=== PATIENT | male | born 1955 | race Caucasian/White ===

== ENCOUNTER → 2022-01-22 10:28 | Outpatient (CLI) | payer OTHER, SELFPAY ==
--- NOTE | ~2022-01-22 | MR_ITS ---
EXAMINATION: MR knee RT wo con DATE: 01/22/2022 11:35 INDICATION: Medial and posterior right knee pain. TECHNIQUE: Magnetic resonance imaging (MRI) of the right knee was performed without intravenous contr ast. Sequences included axial PD-weighted FS FSE, coronal PD-weighted FSE and PD-weighted FS FSE, sag ittal PD-weighted FSE, and sagittal T2-weighted FS FSE. COMPARISON: None. FINDINGS: Medial compartment: Large areas of full-thickness cartilage loss on the weightbearing surface of the femoral condyle and the medial aspect of the tibial plateau, with subjacent marrow edema and subchondral cyst formation. Complex tear of the posterior horn, medial meniscus. Mild osteophytosis. Lateral compartment: Mild diffuse thinning of cartilage. Meniscus intact. Mild osteophytosis. Patellofemoral compartment: Partial-thickness cartilage signal abnormality on the medial facet. Retinacula intact. Ligaments and tendons: ACL appears thinned but is intact. The PCL, MCL, and LCL are intact. Remaining flexor and extensor te ndons are intact. Fluid: Large volume joint fluid. Small Garcia's cyst. Osseous/other: No suspicious focal or diffuse marrow signal. IMPRESSION: 1. Complex tear of the posterior horn, medial meniscus. 2. Large areas of full-thickness cartilage loss on both sides of the joint in the medial compartment, with subjacent marrow edema. 3. Large knee joint effusion. 4. Small Garcia's cyst. Reviewed, dictated and finalized at location K. IMPRESSION: 1. Complex tear of the posterior horn, medial meniscus. 2. Large areas of full-thickness cartilage loss on both sides of the joint in t he medial compartment, with subjacent marrow edema. 3. Large knee joint effusion. 4. Small Garcia's cyst.
== END ==
PROVIDERS: PCP Orthopaedic Surgery; Visit Provider Orthopaedic Surgery
DX: M25.561 Pain in right knee (principal); G89.29 Other chronic pain; S83.231A Complex tear of medial meniscus, current injury, right knee, initial encounter; M25.461 Effusion, right knee; M71.21 Synovial cyst of popliteal space [Baker], right knee; M94.8X6 Other specified disorders of cartilage, lower leg
CPT/HCPCS: 73721

== ENCOUNTER 2024-03-04 07:47 | Outpatient (CLI) | payer MEDICARE, OTHER, SELFPAY ==
--- NOTE | ~2024-03-04 | XR_ITS ---
XR hip RT 2V w AP pelvis Ordering provider: Pramod King MD History: . nO INJURY RIGHT HIP PAIN . Comparison: None. FINDINGS: BONES: No acute fracture or dislocation. HIP JOINT SPACES: Severe osteoarthritic arthritic changes bilaterally more on the right side. SACROILIAC JOINT SPACES/LUMBAR SPINE: The sacroiliac joint spaces are normal. Mild degenerative palacio es of the visualized lower lumbar spine. PUBIC SYMPHYSIS: Normal. SOFT TISSUES: Normal. IMPRESSION: No acute osseous abnormality pelvis and right hip. Bilateral hip severe osteoarthritic changes more on the right side. Reviewed, dictated and finalized at location A. 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
== END 2024-03-04 07:48 | disposition home or self-care (01) ==
PROVIDERS: PCP Orthopaedic Surgery; Visit Provider Orthopaedic Surgery
DX: M25.551 Pain in right hip (principal); M16.11 Unilateral primary osteoarthritis, right hip
CPT/HCPCS: 73502

== ENCOUNTER 2024-03-21 09:43 | Outpatient (CLI) | payer MEDICARE, OTHER, SELFPAY ==
--- NOTE | 2024-03-21 10:03 | ECG_ITS ---
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
[2024-03-21 10:44] LABS: Urine Cotinine NEGATIVE
== END 2024-03-21 09:44 | disposition home or self-care (01) ==
PROVIDERS: PCP Orthopaedic Surgery; Visit Provider Orthopaedic Surgery
DX: M17.11 Unilateral primary osteoarthritis, right knee (principal); I25.10 Atherosclerotic heart disease of native coronary artery without angina pectoris; I45.10 Unspecified right bundle-branch block; Z79.899 Other long term (current) drug therapy
CPT/HCPCS: 80307; 93005

== ENCOUNTER 2024-05-29 07:40 | Outpatient (CLI) | payer MEDICARE, OTHER, SELFPAY ==
--- OUTSIDE RECORDS SUMMARY | 2024-05-29 07:43 | XMS_ITS | Clinical Summary ---
Author Organization [facility] Address [facility] [place] [address] Care Team Providers Care Triage Assistant Name Role Phone Savage Potter MD Primary Care Provider [phone] Allergies No known active allergies Medications atorvastatin (LIPITOR) 40 MG tablet Take 1 tablet (40 mg total) by mouth daily. 2 Active Continuous Glucose Sensor (DEXCOM G7 SENSOR) [facility] 4 Active Olmesartan Medoxomil-HCTZ 20-12.5 MG Tab Take 1 tablet by mouth daily. 3 Active NOVOLOG FLEXPEN 100 UNIT/ML injection (PEN) INJECT APPROXIMATELY 150 UNITS DAILY ON SLIDING SCALE 5 Active LANTUS SOLOSTAR 100 UNIT/ML injection (PEN) INJECT 80 UNITS SUBCUTANEOUSLY DAILY 4 Active B-D ULTRAFINE III SHORT PEN 31G X 8 MM [facility] 4 Active latanoprost (XALATAN) 0.005 % ophthalmic solution Apply 1 drop to eye daily. Active Coenzyme Q10 (COQ10) 100 MG Cap Active Active Problems No known active problems Immunizations Name Administration Dates Next Due MODERNA COVID-19 (12+) MRNA, LNP-S, PF, 100 MCG/ 0.5 ML DOSE 07/31/2020,07/03/2020 Family History Medical History Relation Comments Cancer Father Diabetes Father Cancer Mother Hypertension Mother Diabetes Sister Relation Status Comments Father Mother Sister Social History Tobacco Use Types Packs/Day Years Used Date Smoking Tobacco: Some Days Cigarettes Smokeless Tobacco: Never Tobacco Cessation:Ready to Q uit: Yes; Counseling Given: Yes Alcohol Use Standard Drinks/Week Comments Yes 3.3 (1 standard drink = 0.6 oz p ure alcohol) PHQ-2 Answer Date Recorded Patient Health Questionnaire-2 Score 0 01/03/2024 Sex and Gender Information Value Date Recorded Sex Assigned at Not on file Legal Sex Male 10:38 PM CDT Gender Identity Not on file Sexual Orientation Not on file Last Filed Vital Signs Vital Sign Reading Time Taken Comments Blood Pressure 112/67 01/03/2024 9:16 AM CDT Pulse 81 01/03/2024 9:16 AM CDT Temperature 36.6 C (97.9 F) 01/03/2024 9:16 AM CDT Respiratory Rate - - Oxygen Saturation - - Inhaled Oxygen Concentration - - Weight 109.4 kg (241 lb 3.2 oz) 01/03/2024 9:16 AM CDT Height 182.9 cm (6') 01/03/2024 9:16 AM CDT Body Mass Index 32.71 01/03/2024 9:16 AM CDT Plan of Treatment Health Maintenance Due Date Last Done Comments Colorectal Cancer Screening Colonoscopy (10 Years) 1957 Pneumococcal Vaccine: 65+ Years (1 of 2 - PCV) 1963 Hepatitis C 1975 DTaP, Tdap and Td Vaccines ( 1 - Tdap) 1976 Zoster Vaccines (1 of 2) 2007 Annual Medicare Wellness Visit 2022 COVID-19 Vaccine (4 - 2023-2 5 season) 2023 04/16/2021, 07/31/2020, 07/03/2020 Influenza Adult (#1) 2024 03/02/2016 PHQ-2 (Physician [place]) 04/10/2024 01/03/2024 RSV Immunization or 60+ Years (1 - 1-dose 75+ series) 2032 AAA SCREENING Completed 03/14/2023 Meningococcal B Vaccine Aged Out No l onger eligible based on patient's age to complete this topic Meningococcal Vaccine Aged Out No dakn diandra eligible based on patient's age to complete this topic RSV Immunizations Under 20 Months Aged Out No longer eligible b ased on patient's age to complete this topic Insurance MEDICARE [employer] OPEN [facility]ESS [facility] Care Teams Triage Assistant Relationship Specialty Start Date End Date Savage Potter MD [address] [place] [address] PCP - General 09/13/23
--- OUTSIDE RECORDS SUMMARY | 2024-05-29 07:43 | XMS_ITS | Referral Summary ---
Author Organization [facility] Address [address] [address] Care Team Providers Care Hogshead Stripper Name Role Phone Jesus Garcia MD Primary Care Provider [phone] Source Comments [facility],non-owned Affiliates and Associated Physician Practices is amultiple site organization consisting of ambulatory clinics and hospital sitesin [place], [place], [place] and [place]. This disclosure is being madepursuant to the Care Everywhere program and may not contain all information available regarding this patient. Last updated 17.[facility] [employer] Social History Tobacco Use Types Packs/Day Years Used Date Smoking Tobacco: Never Assessed Sex and Gender Information Value Date Recorded Sex Assigned at Not on file Gender Identity Not on file Sexual Orientation Not on file Plan of Treatment Not on file Care Teams Hogshead Stripper Relationship Specialty Start Date End Date Jesus Garcia MD [address] [place] [address] PCP - General Orthopedic Surgery 09/28/21
--- OUTSIDE RECORDS SUMMARY | 2024-05-29 07:43 | XMS_ITS | Patient Health Summary ---
Author Organization [facility] [employer] Address [address] [place] [address] Care Team Providers Care Breeder Service Technician Name Role Phone Jesus Garcia MD Primary Care Provider [phone] Note from [facility],non-owned Affiliates and Associated Physician Practices is amultiple site organization consisting of ambulatory clinics and hospital sitesin [place], [place], [place] and [place]. This disclosure is being madepursuant to the Care Everywhere program and may not contain all information available regarding this patient. Last updated 17.[facility] [employer] Social History Tobacco Use Types Packs/Day Years Used Date Smoking Tobacco: Never Assessed Sex and Gender Information Value Date Recorded Sex Assigned at Not on file Gender Identity Not on file Sexual Orientation Not on file Procedures * XR KNEE RIGHT 4VW OR MORE(Performed 09/28/2021) Performed for Right knee pain, unspecified chronicity Results * XR KNEE RIGHT 4VW OR MORE (09/28/2021 10:32 AM CDT) Anatomical Region Laterality Modality Lower Extremity Radiographic Valentina ging 09/29/2021 2:02 PM CDT Narrative 09/29/2021 2:13 PM CDT RIGHT KNEE 4 VIEWS AND LEFT KNEE ONE VIEW INDICATION: Pain in right knee. Left knee pain. FINDINGS: Four views of the right knee show mild medial femorotibial joint space narrowing. There is no acute fracture or subluxation. A single frontal view of the left knee shows mild medial femorotibial joint space narrowing. There is no acute fracture or subluxation. Edited by Moon Figueroa on 09/29/2021 2:04 PM *Reading Radiologist: Everardo Huerta on 09/29/2021 at 2:13 PM Procedure Note Everardo Huerta MD - 09/29/2021 RIGHT KNEE 4 VIEWS AND LEFT KNEE ONE VIEW INDICATION: Pain in right knee. Left knee pain. FINDINGS: Four views of the right knee show mild medial femorotibial joint space narrowing. There is no acute fracture or subluxation. A single frontal view of the left knee shows mild medial femorotibial joint space narrowing. There is no acute fracture or subluxation. Edited by Moon Figueroa on 09/29/2021 2:04 PM *Reading Radiologist: Everardo Huerta on 09/29/2021 at 2:13 PM Jesus Garcia MD DIAGNOSTIC IMAGING ORDERABLES Care Teams Breeder Service Technician Relationship Specialty Start Date End Date Jesus Garcia MD [address] [facility] [address] [place] [address] PCP - General Orthopedic Surgery 09/28/21
--- OUTSIDE RECORDS SUMMARY | 2024-05-29 07:43 | XMS_ITS | Encounter Summary ---
Author Organization [facility] Address [facility] [place] [address] Care Team Providers Care Stacker Tender Name Role Phone Anny Holland NP Primary Care Provider [phone] Rogerio Putnam MD Primary Care Provider [phone] Savage Potter MD Primary Care Provider [phone] Encounter Details Date Type Department Care Team (Latest Contact Info) Description 02/13/2018 Abstract [facility] Kristina Chatman MD Social History Tobacco Use Types Packs/Day Years Used Date Smoking Tobacco: Smoker, Current Status Unknown Sex and Gender Information Value Date Recorded Sex Assigned at Not on file Legal Sex Male 10:38 PM CDT Gender Identity Not on file Sexual Orientation Not on file documented as of this encounter Plan of Treatment Not on file documented as of this encounter Visit Diagnoses Not on filedocumented in this encounter Care Teams Stacker Tender Relationship Specialty Start Date End Date Anny Holland NP [address] [place] [address] PCP - General 06/16/15 07/06/22 Rogerio Putnam MD [address] [address] PCP - General 07/07/22 09/12/23 Savage Potter MD [address] [place] [address] PCP - General 09/13/23 documented as of this encounter
--- OUTSIDE RECORDS SUMMARY | 2024-05-29 07:43 | XMS_ITS | Referral Summary ---
Author Organization [facility] [address] Address [address] [place] [address] Care Team Providers Care Collection Systems Consultant Name Role Phone Armen Roberson MD Unavailable [phone] Glen Thompson MD Unavailable [phone] Savage Potter MD Primary Care Provider [phone] Encounters Date Type Department Care Team Description 05/24/2024 10:45 AM [facility] Building [address] [address] Prostate cancer (HCC) from Last 3 Months Allergies No known active allergies Medications latanoprost (XALATAN) 0.005 % ophthalmic solution Administer 1 drop into both eyes nightly Active blood glucose diagnostic strip Check fingersticks once daily. E10.65. 100 each 1 3 Active insulin lispro (HumaLOG, ADMELOG) 100 unit/mL pen for injection 150 Units daily per sliding scale. 45 mL 1 3 Active pen needle, diabetic (BD Ultra-Fine Short Pen Needle) 31 gauge x 5/16 needle USE 4 TIMES A DAY TO INJECTINSULIN 400 each 3 4 Active NovoLOG 100 unit/mL (3 mL) pen for injection INJECT APPROXIMATELY 150 UNITS DAILY ON SLIDING SCALE 135 mL 3 4 Active atorvastatin (LIPITOR) 40 mg tablet TAKE 1 TABLET DAILY 90 tablet 3 4 Active olmesartan-hyd rochlorothiazi de (BENICAR HCT) 20-12.5 mg per tablet TAKE 1 TABLET DAILY 90 tablet 3 4 Active Dexcom G7 Sensor device CHECK BLOOD SUGARS 4 TIMES A DAY (CHANGE AFTER 10 DAYS) 9 each 2 4 Active LANTUS 100 unit/mL (3 mL) pen for injection INJECT 80 UNITS SUBCUTANEOUSLY DAILY 75 mL 3 4 Active Active Problems Problem Noted Date Diagnosed Date Prostate cancer 03/15/2023 Assessment & Plan (01/11/2024 10:27 AM CDT): Per urology. Assessment & Plan (06/30/2023 10:32 AM CDT): S/p total prostatectomy. Per urology. Elevated PSA 12/30/2022 Assessment & Plan (12/30/2022 12:17 PM CDT): Prostate MRI ordered per PCP. Right bundle branch block 10/18/2022 Hyperlipidemia 10/18/2022 Assessment & Plan (06/30/2023 10:32 AM CDT): At goal on current therapy. Assessment & Plan (12/30/2022 12:16 PM CDT): At goal on current therapy. Tobacco abuse 10/18/2022 Hypercholesterolemia 10/18/2022 Assessment & Plan (06/30/2023 10:32 AM CDT): At goal on current therapy. Chronic pain of right knee 06/07/2022 Status post arthroscopy of right knee 06/07/2022 Aftercare following surgery of the musculoskelet al system 06/07/2022 Derangement of posterior hor n of medial meniscus of right knee 02/17/2022 Overview (02/17/2022): Added automatically from request for surgery [id number] Idiopathic osteoarthritis 09/29/2021 Type 1 diabetes mellitus without complication Assessment & Plan (01/11/2024 10:27 AM CDT): A1c mildly elevated. I recommended that he limit snacking at night. Keep insulin doses the same. Eye exams are current. He reports no neuropathy. Assessment & Plan (06/30/2023 10:33 AM CDT): A1c at goal on current therapy. Reviewed outside labs. Type 1 diabetes mellitus with hyperglycemia 10/2021 Assessment & Plan (12/30/2022 12:16 PM CDT): A1c at goal on current therapy. Assessment & Plan (06/21/2022 10:21 AM CDT): A1c at goal on current therapy. Labs UTD. Recommend yearly eye exams. Assessment & Plan (10/16/2021 9:40 AM CDT): A1c above goal today. Take 5 Units of Novolog with coffee in AM. Labs today. Eye exams current. Assessment & Plan (04/16/2021 3:50 PM NEUROLOGICAL SURGEON): A1c at goal on current therapy. Labs UTD. Recommend yearly eye exams. Mixed hyperlipidemia 04/16/2021 Assessment & Plan (01/11/2024 10:26 AM CDT): At goal on current therapy. Assessment & Plan (06/21/2022 10:20 AM CDT): At goal on current therapy. Assessment & Plan (10/16/2021 9:40 AM CDT): At goal on current therapy. Assessment & Plan (04/16/2021 3:49 PM NEUROLOGICAL SURGEON): At goal on current therapy. Hypertension, essential 04/16/2021 Assessment & Plan (01/11/2024 12:54 PM CDT): BP mildly elevated at triage today. Continue current regimen and continue to monitor. Assessment & Plan (12/30/2022 12:16 PM CDT): At goal on current therapy. Assessment & Plan (06/21/2022 10:21 AM CDT): At goal on current therapy. Assessment & Plan (10/16/2021 9:40 AM CDT): At goal on current therapy. Assessment & Plan (04/16/2021 3:49 PM NEUROLOGICAL SURGEON): At goal on current therapy. Immunizations Immunization Administration Dates Next Due Pfizer SARS-CoV-2 Monovalent Vaccination (12+ Yrs) PURPLE 04/16/2021 Social History Tobacco Use Types Packs/Day Years Used Date Smoking Tobacco: Every Day Cigarettes 2 50 Smokeless Tobacco: Never Tobacco Cessation:Ready to Q uit: Not Asked; Counseling Given: Not Answered [facility] [employer] Answer Date Recorded In the past 12 months has [employer], [employer], oil, or water Moz[employer] threatened to shut off services in your home? No 05/11/2023 Social Connection and Isolat ion Panel [NHANES] Answer Date Recorded In a typical week, how many times do you talk on the phone with family, friends, or neighbors? More than three times a week 05/11/2023 How often do you get togethe r with friends or relatives? More than three times a week 05/11/2023 How often do you attend chur ch or mormon services? 1 to 4 times per year 05/11/2023 Do you belong to any clubs o r organizations such as sabianism groups, unions, fraternal or athletic groups, or school groups? No 05/11/2023 How often do you attend meet ings of the clubs or organizations you belong to? Never 05/11/2023 Are you , , di vorced, , never , or living with a partner? 05/11/2023 AUDIT-C Answer Date Recorded Q1: How often do you have a drink containing alc ohol? 2-4 times a month 05/10/2023 Q2: How many drinks containi ng alcohol do you have on a typical day when you are drinking? 3 or 4 05/10/2023 Q3: How often do you have si x or more drinks on one occasion? Monthly 05/10/2023 Overall Financial Resource Strain (CARDIA) Answe r Date Recorded How hard is it for you to pa y for the very basics like food, housing, medical care, and heating? Not hard at all 05/11/2023 Hunger Vital Sign Answer Date Recorded Within the past 12 months, y ou worried that your food would run out before you got the money to buy more. Never true 05/11/19 24 Within the past 12 months, t he food you bought just didn't last and you didn't have money to get more. Never true 05/11/2023 PRAPARE - Transportation Answer Date Re corded In the past 12 months, has l ack of transportation kept you from medical appointments or from getting medications? No 04/2023 In the past 12 months, has l ack of transportation kept you from meetings, work, or from getting things needed for daily living? No 05/11/2023 Housing Stability Vital Sign Answer Rigoberto e Recorded In the last 12 months, was t here a time when you were not able to pay the mortgage or rent on time? No 05/11/2023 In the last 12 months, how many places have you lived? 1 05/11/2023 In the last 12 months, was t here a time when you did not have a steady place to sleep or slept in a mcc (including now)? No 05/11/2023 Personal Safety Answer Date Recorded Have you ever been in or are you currently in a harmful physical or emotional relationship or is someone making you feel afraid or unsafe? Denies 05/10/2023 Sex and Gender Information Value Date Recorded Sex Assigned at Not on file Legal Sex Male 3:17 AM NEUROLOGICAL SURGEON Gender Identity Male 07/30/2021 9:13 AM CDT Sexual Orientation Not on file Last Filed Vital Signs Vital Sign Reading Time Taken Comments Blood Pressure 138/87 01/11/2024 10:01 AM CDT Pulse 85 01/11/2024 10:01 AM CDT Temperature 36.9 C (98.4 F) 05/11/2023 10:27 AM NEUROLOGICAL SURGEON Respiratory Rate 24 05/11/2023 10:27 AM NEUROLOGICAL SURGEON Oxygen Saturation 94% 05/11/2023 10:27 AM NEUROLOGICAL SURGEON Inhaled Oxygen Concentration - - Weight 108.9 kg (240 lb) 02/20/2024 3:07 PM NEUROLOGICAL SURGEON Height 182.9 cm (6') 02/20/2024 3:07 PM NEUROLOGICAL SURGEON Body Mass Index 32.55 02/20/2024 3:07 PM NEUROLOGICAL SURGEON Plan of Treatment Not on file Goals Goal Patient Goal Type Associated Problems Recent Progress Patient-Stated? Author CCM Chronic Pain Care Plan Chronic Care Management Worsening( 10:16 AM CDT) No Karissa Smith, RN Note: Problem: Chronic Pain Goals: 1. Minimize further functional decline 2. Maximize quality of life 3. Control pain Strategies: - Activity/exercise program recommendation - Conservative stepwise pain medicine strategy with multi-disciplinary approach - Recommend healthy lifestyle strategies and compensatory methods as needed Medical Devices Implanted Type Area Doping Supervisor Device Identifier Shelf Expiration Date Model / Serial / Lot Dental Implant Mouth Procedures Procedure Name Priority Date/Time Associated Diagnosis Comments PSA DIAGNOSTIC Routine 05/24/2024 11:03 AM NEUROLOGICAL SURGEON Prostate cancer (HCC) POCT HEMOGLOBIN A1C Routine 01/11/2024 12:55 PM CDT Type 1 diabetes mellitus without complication (HCC) CT LUNG CANCER SCREENING Schedule Routine, Read Routine (OP Routine) 07/31/2023 12:37 PM CDT Nicotine dependence, cigarettes, uncomplicated EGFR Routine 05/11/2023 4:43 AM NEUROLOGICAL SURGEON POCT LIPID PANEL Routine 06/21/2022 10:3 6 AM CDT Mixed hyperlipidemia ALBUMIN CREATININE RATIO, URINE Routine 10/15/2021 11:15 AM CDT Type 1 diabetes mellitus with hyperglycemia (HCC) TSH Routine 10/15/2021 11:15 AM CDT Type 1 diabetes mellitus with hyperglycemia (HCC) from Last 3 Months or Most Recently Relevant to Health Maintenance Results * PSA diagnostic (05/24/2024 11:03 AM NEUROLOGICAL SURGEON) PSA-Total <0.10 <=5.40 ng/mL Comment: Interpretive Data AGE SEX REFERENCE INTERVAL 0 minutes-150 years Female None 0 minutes-49 years Male None 50-59 years Male 0-3.90 60-69 years Male 0-5.40 70-79 years Male 0-6.20 80-150 years Male 0-6.20 The Ana Paula PSA Total assay procedure was used. Results from different manufacturers or methods may not be comparable. Serial testing should be performed using the same method. Current interpretive data last revised 21. Testing performed by: [facility], [address] [place] [address]., [id number] Blood 05/24/2024 11:0 3 AM NEUROLOGICAL SURGEON 05/24/2024 12:44 PM NEUROLOGICAL SURGEON us Hardik Solano MD LAB BLOOD ORDERABLES Final Resul t [facility] [id number] [facility] Department [place] [address] * POCT hemoglobin A1c (01/11/2024 12:55 PM CDT) Hemoglobin A1C, POC 7.4 4.0 - 5.6 % Capillary blood 01/11/2024 1 2:55 PM CDT Glen Thompson MD POINT OF CARE TEST MARIBEL GRAY Final Result * CT Lung Cancer Screening (07/31/2023 12:37 PM CDT) Anatomical Region Laterality Modality Chest N/A Computed Tomogra phy 08/01/2023 6:41 AM CDT Narrative 08/01/2023 6:49 AM CDT EXAM DESCRIPTION: CT LUNG CANCER SCREENING REASON FOR STUDY: Screening CT of the chest in a current smoker with a 104 pack year smoking history. Additional history: Prostate carcinoma TECHNIQUE: Low dose CT scan of the chest was performed without intravenous contrast using helical scanning technique. The exam extends from the lung apices through the lung bases. Automatic exposure control was used as a dose optimization technique. NOTE: This study was performed for the specific purposes of lung cancer screening and is not an alternative to diagnostic chest CT. RADIATION DOSE: CT dose index volume (CTDIvol) = 2.86 mGy COMPARISON: PET-CT dated 03/14/2023. FINDINGS: SMOKING RELATED LUNG DISEASE: Mild emphysema, upper lobe predominant. Minimal pleuroparenchymal scarring within the apices. Central bronchial wall thickening as can be seen in the setting of chronic bronchitis in a current smoker. Tiny centrilobular ground-glass nodules are noted as can be seen in the setting of respiratory bronchiolitis in a current smoker. LUNG NODULES: Granuloma left upper lobe. 3 mm ground-glass nodule medial left apex, image 46 of series 2. There are scattered tiny nodules within both lungs. For instance a 2 mm nodule in the right middle lobe on image number 224 no suspicious nodule within either lung. CORONARY ARTERY CALCIFICATION: Present OTHER: No pneumonic consolidation. No effusion or pneumothorax. Central airways are widely patent. The visualized thyroid gland is unremarkable. There is no mediastinal or hilar lymphadenopathy. Scattered subcentimeter nodes are similar to the prior PET-CT. The esophagus is unremarkable. The heart is normal in size, without a pericardial effusion. The thoracic aorta is normal in caliber. Mild atherosclerotic vascular calcifications. Main pulmonary trunk normal in caliber. No axillary lymphadenopathy. The chest wall is unremarkable. Visualized upper abdomen reveals adrenal mass. There is cervical and thoracic spondylosis, with multilevel endplate degenerative change. There is no acute osseous abnormality. IMPRESSION: Mild emphysema, upper lobe predominant. Bronchial wall thickening as can be seen in the setting of chronic bronchitis. Tiny centrilobular ground-glass nodules as can be seen in the setting of respiratory bronchiolitis in a current smoker. Scattered tiny bilateral pulmonary nodules. No suspicious nodularity. Coronary artery calcifications. Additional findings as above. Lung-RADS category 2: Benign appearance or behavior. Recommendation: Low dose Screening CT of chest in 12 months. THIS IS AN ELECTRONICALLY VERIFIED FINAL REPORT 08/01/2023 6:49 AM - Electronically signed by Roxanne Chavarria M.D. TW: MADHAVI Report ID: [id number] Reading Location: [id number] Procedure Note Roxanne Chavarria MD - 08/01/2023 EXAM DESCRIPTION: CT LUNG CANCER SCREENING REASON FOR STUDY: Screening CT of the chest in a current smoker with a104 pack year smoking history. Additional history: Prostate carcinoma TECHNIQUE: Low dose CT scan of the chest was performed without intravenous contrast using helical scanning technique. The exam extends from the lung apices through the lung bases. Automatic exposure control was used as adose optimization technique. NOTE: This study was performed for the specific purposes of lung cancer screening and is not an alternative to diagnostic chest CT. RADIATION DOSE: CT dose index volume (CTDIvol) = 2.86 mGy COMPARISON: PET-CT dated 03/14/2023. FINDINGS: SMOKING RELATED LUNG DISEASE: Mild emphysema, upper lobe predominant. Minimal pleuroparenchymal scarring within the apices.Central bronchial wall thickening as can be seen in the setting of chronicbronchitis in a current smoker. Tiny centrilobular ground-glass nodules are noted ascan be seen in the setting of respiratory bronchiolitis in a current smoker. LUNG NODULES: Granuloma left upper lobe. 3 mm ground-glass nodule medial left apex, image 46 of series 2. There are scattered tiny nodules within both lungs. For instance a 2 mm nodule in the right middle lobe on image number 224 no suspicious nodule within either lung. CORONARY ARTERY CALCIFICATION: Present OTHER: No pneumonic consolidation. No effusion or pneumothorax.Central airways are widely patent. The visualized thyroid gland is unremarkable. There is no mediastinal or hilar lymphadenopathy. Scattered subcentimeter nodes are similar to the prior PET-CT. The esophagus is unremarkable.The heart is normal in size, without a pericardial effusion. The thoracicaorta is normal in caliber. Mild atherosclerotic vascular calcifications. Main pulmonary trunk normal in caliber. No axillary lymphadenopathy. Thechest wall is unremarkable. Visualized upper abdomen reveals adrenal mass.There is cervical and thoracic spondylosis, with multilevel endplatedegenerative change. There is no acute osseous abnormality. IMPRESSION: Mild emphysema, upper lobe predominant. Bronchial wall thickening as can be seen in the setting of chronic bronchitis. Tiny centrilobular ground-glass nodules as can be seen in the setting of respiratory bronchiolitis in a current smoker. Scattered tiny bilateral pulmonary nodules. No suspicious nodularity. Coronary artery calcifications. Additional findings as above. Lung-RADS category 2: Benign appearance or behavior. Recommendation: Low dose Screening CT of chest in 12 months. THIS IS AN ELECTRONICALLY VERIFIED FINAL REPORT 08/01/2023 6:49 AM - Electronically signed by Roxanne Chavarria M.D. TW: MADHAVI Report ID: [id number] Reading Location: [id number] us Savage Potter MD IMG CT PROCEDURES Final R esult * eGFR (05/11/2023 4:43 AM NEUROLOGICAL SURGEON) eGFR 47 mL/min/1. 73 m2 [facility] Comment: Interpretive Data Reference Interval Normal >/= 90 mL/min/1.73m2 Mildly decreased* 60 - 89 mL/min/1.73m2 Mildly to moderately decreased 45 - 59 mL/min/1.73m2 Moderately to severely decreased 30 - 44 mL/min/1.73m2 Severely decreased 15 - 29 mL/min/1.73m2 Kidney Failure < 15 mL/min/1.73m2 *Relative to young adult level Estimated glomerular filtration rate is determined by the 2020 CKD-EPI equation recommended by the National Kidney Foundation (A Unifying Approach to GFR Estimation: Recommendations of the NKF-ASK Task Force on Reassessing the Inclusion of Race in Diagnosing Kidney Disease, JASN 2020). The CKD-EPI equation should not be used for patients with unstable renal function and has not been validated in children and those over 70. Current interpretive data was last reviewed 2021. Blood 05/11/2023 4:43 AM NEUROLOGICAL SURGEON 05/11/2023 5:02 AM NEUROLOGICAL SURGEON us Hardik Solano MD LAB BLOOD ORDERABLES Final Resul t [facility] [address] [facility] Department of Laboratories [place], [place] [id number] * POCT lipid panel (06/21/2022 10:36 AM CDT) Cholesterol, POC <100 mg/dL HDL, POC 28 mg/dL Triglycerides, POC 72 mg/dL LDL Cholesterol POC n/a mg/dL Chol/HDL Ratio, POC n/a Non-HDL Cholesterol, POC n/a mg/dL Cholesterol Total, POC <100 mg/dL Capillary blood 06/21/2022 1 0:36 AM CDT Glen Thompson MD POINT OF CARE TEST MARIBEL GRAY Final Result * Albumin Creatinine Ratio, Urine (10/15/2021 11:15 AM CDT) Creatinine ur 70.2 Not Estab. mg/dL [facility] - 01 Microalbumin, ur 5.8 Not Estab. ug/mL [facility] - 01 Microalbumin/cre at ratio 8 0 - 29 mg/g creat [facility] - 01 Comment: Normal: 0 - 29 Moderately increased: 30 - 300 Severely increased: >300 Urine 10/15/2021 11:1 5 AM CDT 10/15/2021 Narrative [facility] - 10/16/2021 9:10 AM CDT Performed at: [address] [place] [id number] Canine Service Teacher: Surinder Hernandez PhD, Phone: [phone] Glen Thompson MD LAB URINE ORDERABLES Fi nal Result Performing Organization Address [facility] de Phone Number [facility] - * TSH (10/15/2021 11:15 AM CDT) Pathologist [facility] TSH 2.130 0.450 - 4.500 uIU/mL [facility] - 01 Blood specimen (specimen) 10/15/2021 11:15 AM CDT 10/15/2021 Narrative [facility] - 10/16/2021 9:10 AM CDT Performed at: [address] [place] [id number] Canine Service Teacher: Surinder Hernandez PhD, Phone: [phone] Glen Thompson MD LAB BLOOD ORDERABLES Fi nal Result Performing Organization Address [facility] de Phone Number [facility] - from Last 3 Months or Most Recently Relevant to Health Maintenance Insurance [facility] [id number] MEDICARE [facility] [id number] MEDICARE [facility] [id number] MEDICARE [facility] [id number] MEDICARE Advance Directives For more information, please contact: [phone] * Full Code (Latest Code Status on File) Date Activated Date Inactivated Comments 05/10/2023 3:47 PM 05/11/2023 4:29 PM Care Teams Collection Systems Consultant Relationship Specialty Start Date End Date Savage Potter MD [address] [facility] [address] [place] [address] PCP - General Family Medicine 06/23/23 Armen Roberson MD [address] [address] Consulting Physician Orthopedic Surgery 04/19/22 Glen Thompson MD [address] [facility] [address] [place] [address] Consulting Physician Endocrinology Diabetes & Metabolism 05/02/23
--- OUTSIDE RECORDS SUMMARY | 2024-05-29 07:43 | XMS_ITS | Clinical Summary ---
Author Organization [facility] Call [place] Address [address] [place] [address] Care Team Providers Care Racing Secretary Name Role Phone Jesus Garcia MD Primary Care Provider [phone] Source Comments [facility],non-owned Affiliates and Associated Physician Practices is amultiple site organization consisting of ambulatory clinics and hospital sitesin [place], [place], [place] and [place]. This disclosure is being madepursuant to the Care Everywhere program and may not contain all information available regarding this patient. Last updated 17.[facility] Call [place] Social History Tobacco Use Types Packs/Day Years Used Date Smoking Tobacco: Never Assessed Sex and Gender Information Value Date Recorded Sex Assigned at Not on file Gender Identity Not on file Sexual Orientation Not on file Plan of Treatment Health Maintenance Due Date Last Done Comments COLOGUARD (AGES 45-75) - COL ON CA SCREENING 1957 COLON MONITORING 1957 COLONOSCOPY - COLON CA SCREENING 1957 CT COLONOGRAPHY - COLON CA SCREENING 1957 Colorectal Cancer Screening 1957 FIT - COLON CA SCREENING 1957 FLEX SIG - COLON CA SCREENING 1957 LIPID TESTING 1957 HEPATITIS C SCREENING 03/23/1975 DTAP/TDAP/TD VACCINES (1 - Tdap) 1976 PNEUMOCOCCAL VACCINE 50+ (1 of 1 - PCV) 2007 ZOSTER VACCINE (1 of 2) 2007 COVID-19 VACCINE ( - 2023-2 5 season) 2023 04/16/2021, 07/31/2020, 07/03/2020 INFLUENZA VACCINE (#1) 2023 DEPRESSION SCREENING 04/10/2024 Respiratory Syncytial Virus (RSV) Vaccine Pt: or over 60 yrs (1 - 1-dose 75+ series) 2032 HEPATITIS B VACCINE Aged Out No longe r eligible based on patient's age to complete this topic HIB VACCINE Aged Out No longer eligi ble based on patient's age to complete this topic HPV VACCINE Aged Out No longer eligi ble based on patient's age to complete this topic MENINGOCOCCAL (Group B) VACCINE Aged Out No longer eligible b ased on patient's age to complete this topic MENINGOCOCCAL VACCINE Aged Out No dank diandra eligible based on patient's age to complete this topic Care Teams Racing Secretary Relationship Specialty Start Date End Date Jesus Garcia MD [address] [place] [address] PCP - General Orthopedic Surgery 09/28/21
--- OUTSIDE RECORDS SUMMARY | 2024-05-29 07:43 | XMS_ITS ---
Author Organization [facility] [address] Address [address] [place] [address] Care Team Providers Care Spray Mixer Name Role Phone Armen Roberson MD Unavailable [phone] Glen Thompson MD Unavailable [phone] Savage Potter MD Primary Care Provider [phone] Active Problems Problem Noted Date Diagnosed Date [...] (02/17/2022): Added automatically from request for surgery [id number] Idiopathic osteoarthritis 09/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 Assessment & Plan (04/16/2021 3:50 PM PATHOLOGY LABORATORY DIRECTOR): A1c at goal on current therapy. Labs UTD. Recommend yearly eye exams. Mixed hyperlipidemia 04/16/2021 Assessment & Plan (01/11/2024 10:26 AM CDT): At goal on current therapy. Assessment & Plan (06/21/2022 10:20 AM CDT): At goal on current therapy. Assessment & Plan (10/16/2021 9:40 AM CDT): At goal on current therapy. Assessment & Plan (04/16/2021 3:49 PM PATHOLOGY LABORATORY DIRECTOR): At goal on current therapy. Hypertension, essential [...] therapy. Assessment & Plan (04/16/2021 3:49 PM PATHOLOGY LABORATORY DIRECTOR): At goal on current therapy. Current Treatment and Therapy Plans No current plan information found. Past Treatment and Therapy Plans No past plan information found. Lifetime Dose Tracking * Chemical Lifetime Dose Automatic Entry Manual Entr y Fluoro Time 0.642 minutes 0.642 minutes 0 minutes Air kerma at the reference point (Ka,r) 20.32 mGy 2 0.32 mGy 0 mGy DLP 119 mGycm 119 mGycm 0 mGycm CTDIvol 2.86 mGy 2.86 mGy 0 mGy
--- OUTSIDE RECORDS SUMMARY | 2024-05-29 07:43 | XMS_ITS | Clinical Summary ---
Author Organization [facility] [address] Address [address] [place] [address] Care Team Providers Care Slag Skimmer Name Role Phone Armen Roberson MD Unavailable [phone] Glen Thompson MD Unavailable [phone] Savage Potter MD Primary Care Provider [phone] Allergies No known active allergies Medications latanoprost [...] (02/17/2022): Added automatically from request for surgery [id number] Idiopathic osteoarthritis 09/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 Assessment & Plan (04/16/2021 3:50 PM DIVERSIONAL THERAPIST'S ASSISTANT): A1c at goal on current therapy. Labs UTD. Recommend yearly eye exams. Mixed hyperlipidemia 04/16/2021 Assessment & Plan (01/11/2024 10:26 AM CDT): At goal on current therapy. Assessment & Plan (06/21/2022 10:20 AM CDT): At goal on current therapy. Assessment & Plan (10/16/2021 9:40 AM CDT): At goal on current therapy. Assessment & Plan (04/16/2021 3:49 PM DIVERSIONAL THERAPIST'S ASSISTANT): At goal on current therapy. Hypertension, essential [...] therapy. Assessment & Plan (04/16/2021 3:49 PM DIVERSIONAL THERAPIST'S ASSISTANT): At goal on current therapy. Encounters Date Type Department Care Team Description 05/24/2024 10:45 AM DIVERSIONAL THERAPIST'S ASSISTANT Lab [facility] Office Building [address] [place] [id number] Prostate cancer (HCC) from Last 3 Months Immunizations Immunization Administration Dates Next Due Pfizer SARS-CoV-2 Monovalent Vaccination (12+ Yrs) PURPLE 04/16/2021 Surgical History Surgery Date Site/Laterality Comments TRIGGER FINGER RELEASE Bilateral x4 COLONOSCOPY multiple MENISCUS SURGERY 04/10/2022 - 05/10/2022 Right TONSILLECTOMY as a child PROSTATE BIOPSY LASIK Bilateral Medical History Medical History Date Comments Diabetes mellitus type I (HCC) Glaucoma Hypertension Chronic pain disorder right leg, knee hip Prostate cancer (HCC) Hyperlipidemia Dental root implant present uppe r Uses self-applied continuous glucose monitoring device dexcom Family History Medical History Relation Name Comments Diabetes Brother Cancer Father Diabetes Father Cancer Maternal Grandmother Cancer Mother Cancer Sister Diabetes Sister Relation Name Status Comments Brother Father Maternal Grandmother Mother Sister Social History Tobacco Use Types Packs/Day Years Used Date Smoking Tobacco: Every Day Cigarettes 2 50 Smokeless Tobacco: Never Tobacco Cessation:Ready to Q uit: Not Asked; Counseling Given: Not Answered [facility] Utilities Answer Date Recorded In the past 12 months has [employer], gas, oil, or water [employer] threatened to shut off services in your [...] often do you attend chur ch or cheondoism services? 1 to 4 times per year 05/11/2023 Do you belong to any clubs o r organizations such as scientologist groups, unions, fraternal or athletic groups, or [...] place to sleep or slept in a long term (including now)? No 05/11/2023 Personal Safety Answer Date Recorded Have you ever been in or are you currently in a harmful physical or emotional relationship or is someone making you feel afraid or unsafe? Denies 05/10/2023 Sex and Gender Information Value Date Recorded Sex Assigned at Not on file Legal Sex Male 3:17 AM DIVERSIONAL THERAPIST'S ASSISTANT Gender Identity Male 07/30/2021 9:13 AM CDT Sexual Orientation Not on file Obstetrics History Last Filed Vital Signs Vital Sign Reading Time Taken Comments Blood Pressure 138/87 01/11/2024 10:01 AM CDT Pulse 85 01/11/2024 10:01 AM CDT Temperature 36.9 C (98.4 F) 05/11/2023 10:27 AM DIVERSIONAL THERAPIST'S ASSISTANT Respiratory Rate 24 05/11/2023 10:27 AM DIVERSIONAL THERAPIST'S ASSISTANT Oxygen Saturation 94% 05/11/2023 10:27 AM DIVERSIONAL THERAPIST'S ASSISTANT Inhaled Oxygen Concentration - - Weight 108.9 kg (240 lb) 02/20/2024 3:07 PM DIVERSIONAL THERAPIST'S ASSISTANT Height 182.9 cm (6') 02/20/2024 3:07 PM DIVERSIONAL THERAPIST'S ASSISTANT Body Mass Index 32.55 02/20/2024 3:07 PM DIVERSIONAL THERAPIST'S ASSISTANT Plan of Treatment Health Maintenance Due Date Last Done Comments Colon Cancer Screening-Colonoscopy 1957 Depression Screening 1957 Foot Exam 1957 Hepatitis C Screening 1957 Dilated Eye Exam 1967 DTaP/Tdap/Td Vaccine (1 - Tdap) 1968 Pneumococcal vaccine 65+ (1 of 2 - PCV) 1976 Zoster Vaccine (1 of 2) 2007 Abdominal Aortic Aneurysm (A AA) Screen 2022 Well Visit 65+ 2022 Albumin Creatinine Ratio, Urine 10/15/2022 TSH Level 10/15/2022 10/15/2021, 07/28/2020 Lipid Panel 06/22/2023 06/21/2022, 07/0 11/2021, 04/16/2021, Additional history exists Covid-19 Vaccine ( - 2023-2 5 season) 2023 04/16/2021, 07/31/2020, 07/03/2020 Influenza Vaccine (#1) 2023 02/15/2021, 2015 Fall Risk Assessment 05/10/2024 05/10/2023 eGFR 05/11/2024 05/11/2023, 04/11, 03/31/2023, Additional history exists Hemoglobin A1C 07/11/2024 01/11/2024, 04/11, 12/30/2022, Additional history exists Lung Cancer Screening 07/31/2024 07/31/2023 Prostate Cancer Screening-PSA 05/24/2026, 02/14/2024, 10/19/2023, Additional history exists Hepatitis B Screening Completed 03/19/1993 , 08/19/1992, 07/22/1992 Goals Goal Patient Goal Type Associated Problems Recent Progress Patient-Stated? Author CCM Chronic Pain Care Plan Chronic Care Management Worsening( 10:16 AM CDT) Karissa Dickens RN Note: Problem: Chronic Pain Goals: 1. Minimize further functional decline 2. Maximize quality of life 3. Control pain Strategies: - Activity/exercise program recommendation - Conservative stepwise pain medicine strategy with multi-disciplinary approach - Recommend healthy lifestyle strategies and compensatory methods as needed Medical Devices Implanted Type Area Hris Manager Device Identifier Shelf Expiration Date Model / Serial / Lot Dental Implant Mouth Procedures Procedure Name Priority Date/Time Associated Diagnosis Comments PSA DIAGNOSTIC Routine 05/24/2024 11:03 AM DIVERSIONAL THERAPIST'S ASSISTANT Prostate cancer (HCC) POCT HEMOGLOBIN A1C Routine 01/11/2024 12:55 PM CDT Type 1 diabetes mellitus without complication (HCC) CT LUNG CANCER SCREENING Schedule Routine, Read Routine (OP Routine) 07/31/2023 12:37 PM CDT Nicotine dependence, cigarettes, uncomplicated EGFR Routine 05/11/2023 4:43 AM DIVERSIONAL THERAPIST'S ASSISTANT POCT LIPID PANEL Routine 06/21/2022 10:3 6 AM CDT Mixed hyperlipidemia ALBUMIN CREATININE RATIO, URINE Routine 10/15/2021 11:15 AM CDT Type 1 diabetes mellitus with hyperglycemia (HCC) TSH Routine 10/15/2021 11:15 AM CDT Type 1 diabetes mellitus with hyperglycemia (HCC) from Last 3 Months or Most Recently Relevant to Health Maintenance Results * PSA diagnostic (05/24/2024 11:03 AM DIVERSIONAL THERAPIST'S ASSISTANT) PSA-Total <0.10 <=5.40 ng/mL Comment: Interpretive Data [...] data last revised 21. Testing performed by: [facility], [address] [place] [address]., [id number] Blood 05/24/2024 11:0 3 AM DIVERSIONAL THERAPIST'S ASSISTANT 05/24/2024 12:44 PM DIVERSIONAL THERAPIST'S ASSISTANT Hardik Solano MD LAB BLOOD ORDERABLES Final Resul t [facility] [address] [facility] Department [place] [address] * POCT hemoglobin A1c (01/11/2024 12:55 PM CDT) Hemoglobin A1C, POC 7.4 4.0 - 5.6 % Capillary blood 01/11/2024 1 2:55 PM CDT Glen Thompson MD POINT OF CARE TEST [place] ISAAC Final Result * CT Lung Cancer Screening [...] Roxanne Chavarria M.D. TW: MADHAVI Report ID: [id number] Reading Location: [place] [address] Procedure Note Roxanne Chavarria MD - 08/01/2023 [...] Electronically signed by Roxanne Chavarria M.D. TW: TW Report ID: [id number] Reading Location: [id number] us Savage Potter MD IMG CT PROCEDURES Final R esult * eGFR (05/11/2023 4:43 AM DIVERSIONAL THERAPIST'S ASSISTANT) eGFR 47 mL/min/1. 73 m2 [facility] CULVER [...] last reviewed 2021. Blood 05/11/2023 4:43 AM DIVERSIONAL THERAPIST'S ASSISTANT 05/11/2023 5:02 AM DIVERSIONAL THERAPIST'S ASSISTANT Hardki Solano MD LAB BLOOD ORDERABLES Final Resul t [facility] [address] [facility] Department [place] [address] * POCT lipid panel (06/21/2022 10:36 AM [...] - 10/16/2021 9:10 AM CDT Performed at: [facility] [employer] [id number] Waiter/Waitress Second Class: Surinder Hernandez PhD, Phone: [phone] Glen Thompson MD LAB URINE ORDERABLES Fi nal Result Performing Organization Address [facility] de Phone Number [facility] - * TSH (10/15/2021 11:15 AM CDT) TSH 2.130 0.450 - 4.500 uIU/mL [facility] - 01 Blood specimen (specimen) 10/15/2021 11:15 AM CDT 10/15/2021 Narrative [facility] - 10/16/2021 9:10 AM CDT Performed at: [facility] [employer] [address] [id number] Waiter/Waitress Second Class: Surinder Hernandez PhD, Phone: [phone] Glen Thompson MD LAB BLOOD ORDERABLES Fi nal Result Performing Organization Address [facility] Co de Phone Number [facility] - from Last 3 Months or Most Recently Relevant to Health Maintenance Insurance [facility] [id number] MEDICARE [facility] [id number] MEDICARE [facility] [id number] MEDICARE [facility] [id number] MEDICARE Advance Directives For more information, please contact: [phone] * Full Code (Latest Code Status on File) Date Activated Date Inactivated Comments 05/10/2023 3:47 PM 05/11/2023 4:29 PM Care Teams Slag Skimmer Relationship Specialty Start Date End Date Savage Potter MD [address] [address] PCP - General Family Medicine 06/23/23 Armen Roberson MD [address] [address] Consulting Physician Orthopedic Surgery 04/19/22 Glen Thompson MD [address] [address] Consulting Physician Endocrinology Diabetes & Metabolism 05/02/23
--- OUTSIDE RECORDS SUMMARY | 2024-05-29 07:43 | XMS_ITS | Continuity of Care Document ---
Author Organization [facility] Address [address] [place] [address] Phone Care Team Providers Care Yard Clerk Name Role Phone Radha Shantanudorianjaquan Unavailable Unavailable Allergies, Adverse Reactions, Alerts Substance Reaction Status Criticality No Known Allergies Active No Inform ation Medications Medication Instructions Dosage Effective Dates (start - stop) Status Comments ATORVASTATIN CALCIUM (unknown strength) Not Available - Active NOVOLOG (unknown strength) Not Available - Active LATANOPROST (unknown strength) Not Available - Active OLMESARTAN-HYDROCHLOROT HIAZIDE (unknown strength) Not Available - Active Procedures Procedure Date Office/outpatient visit,[facility] 2021 Asp/inject major joint or bursa w/o US g uidance Kenalog 40mg/mL Advance Directives Directive Yes / No Effective Date File Name No Information Encounters Encounter Description Practice Location Reason(s) For Visit Diagnoses Date Provider Providers Copied on Encounter [facility], [address] [place] [address], [id number], [place] tel:[phone] [facility] No Information [place]. [address] [place] [address], [place] [address], [place], [place], [id number] , [place]. tel:[phone] Office/outpa tient visit,[facility], [address], [id number], tel:[phone] [facility] Right Knee (chief complaint) Pain in right kneeUnilateral primary osteoarthritis, right kneePain in right lower legLocalized edema 2 Sisi Gibson. [address] [facility], [address], [place], [place], [id number] , [place]. tel: [phone] Family History Family Member Type Diagnosis Age At Onset Problem Family history of Cancer, un known Problem Family history of hypertensi on Problem Family history of Diabetes monet verena Payers Payer name Insurance type Covered democrat ID Rush parker(s) [employer] CI [id number] Social History Type Description Quantity Date Captured Comments Alcohol Use Details Unknown Caffeine Use Details Unknown Tobacco Use Status Smoking Status No Information Sex Male Chief Complaint And Reason For Visit No Information Reason For Referral Reason For Referral No Information Plan Of Treatment Date Type Action Status Referral Ordered: Venous Doppler Extremity RT leg ordered History Of Present Illness Encounter Date Complaint History Of Prese nt Illness Right Knee Desmond is a pleas ant 66-year-old, 6 foot tall, 250 pounds, right-hand dominant gentleman who presents to the office today for evaluation of his acute, nontraumatic right knee pain. Patient is unable to identify initiating or exacerbating factors. Pain is predominantly located in the popliteal region of the knee and has been present for approximately 1 month. States it is interfering with his weekly golf game. He has a past medical history significant for type 1 diabetes with insulin usage for management, hypertension, and hypercholesterolemia. Indicates usage of Dex com glucose monitor, with recent hemoglobin A1c at 6.7. States he has received cortisone injections into his back with no increase in glucose levels noticeable. 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 He has a 60-dcsx-wity history of smoking, and is a social drinker consuming approximately 2 beers per week. He is currently experiencing night pain, limping, a decrease in range of motion, weakness, giving way, stiffness, and popping. His pain is rated at an 8 out of 10 with a fluctuant constant nature. Pain is worsened with range of motion of the knee, lifting, pushing, standing, sit to stand maneuver, movement, ambulation, ascending and descending stairs. Pain is managed with the use of activity modifications and CBD oil. Denies injury, trauma, or fall within the last 12 months. Denies fever, chills, generalized feelings of illness or malaise at today's office visit. He is ambulating without assistive device at today's office visit. Functional Status Date Functional Assessmen t No Information Instructions Date Instruction Additional Infor renuka Verbal consent for t he procedure was obtained. The patient was seated with the knees bent to 90 degrees of flexion. The right knee was prepped with alcohol and chlorhexidine. The skin was anesthetized with Ethyl Chloride spray and a 22 gauge needle was used to introduce 40 mg of Kenalog and 3 mL of 1% Lidocaine plain into the knee joint. The area of injection was then cleaned and a sterile bandage was placed. The procedure was completed without complication, and was well tolerated by the patient. Patient was discharged in stable condition. Dictation completed with [employer] Practice Edition software, grammatical variances in spelling errors may inadvertently occur. Related to Localized edema Assessments Type Assessment Date No Information Patient Care Teams Name Effective Dates (start - stop) Status Members No Information
--- OUTSIDE RECORDS SUMMARY | 2024-05-29 07:43 | XMS_ITS | Encounter Summary ---
Author Organization [facility] Address [address] [place] [address] Care Team Providers Care Cold Storage Supervisor Name Role Phone Savage Potter MD Primary Care Provider [phone] Encounter Details Date Type Department Care Team (Late st Contact Info) Description 01/03/2024 MyChart Message Enc [facility] [place] [address] [place] [address] Cuate Pope MD [address] [place] [address] Smoking Social History Tobacco Use Types Packs/Day Years Used Date Smoking Tobacco: Some Days Cigarettes Smokeless Tobacco: Never Alcohol Use Standard Drinks/Week Comments Yes 3.3 [...] on filedocumented in this encounter Care Teams Cold Storage Supervisor Relationship Specialty Start Date End Date Savage Potter MD [address] [place] [address] PCP - General 09/13/23 documented as of this encounter
[2024-05-29 09:10] LABS: Basophils Absolute Auto 0.1 K/mm3 (0.0-0.1); Basophils Percent Auto 1.1 % (0.2-1.2); Eosinophils Absolute Auto 0.1 K/mm3 (0-0.3); Eosinophils Percent Auto 1.9 % (0-4.4); Hematocrit 39.5 % (42.0-52.0); Hemoglobin 13.4 g/dL (14.0-18.0); Immature Granulocyte Absolute 0.02 K/mm3 (0.00-0.031); Immature Granulocyte Percent A 0.3 % (0-0.5); Lymphocytes Absolute Auto 1.71 K/mm3 (0.9-3.2); Lymphocytes Percent Auto 26.6 % (18.3-44.2); Mean Corpuscular HGB Conc 33.9 g/dl (32-36); Mean Corpuscular Hemoglobin 29.3 pg (26-34); Mean Corpuscular Volume 86.2 fl (80-100); Monocytes Absolute Auto 0.5 K/mm3 (0.1-0.6); Monocytes Percent Auto 7.8 % (2.6-8.5); Neutrophils Percent Auto 62.3 % (45.5-73.1); Platelet Count Result 182 k/mm3 (150-375); Red Blood Count 4.58 M/mm3 (4.6-6.20); Red Cell Distribution Width 12.7 % (11.5-14.5); White Blood Count 6.4 K/mm3 (4.5-10.0)
[2024-05-29 09:15] LABS: Albumin Level 4.2 g/dL (3.5-5.1)
[2024-05-29 09:18] LABS: Anion Gap 12 mmol/L (4-12); Blood Urea Nitrogen 22 mg/dL (9-20); Calcium 9.1 mg/dL (8.4-10.2); Carbon Dioxide 25 mmol/L (22-30); Chloride 103 mmol/L (98-107); Estimated Glomerular Filt Rate > 60; Glucose 102 mg/dL (65-110); Potassium 4.5 mmol/L (3.4-5.0); Sodium 140 mmol/L (137-145)
[2024-05-29 09:20] LABS: Urine Cotinine NEGATIVE
[2024-05-29 09:29] LABS: Hemoglobin A1C 7.1 % (<5.7)
[2024-05-29 10:16] LABS: MRSA (PCR) NOT DETECTED (NOT DETECTE)
== END 2024-05-29 07:41 | disposition home or self-care (01) ==
PROVIDERS: Anesthesiology; PCP Family Medicine; Visit Provider Orthopaedic Surgery
DX: Z01.812 Encounter for preprocedural laboratory examination (principal); M16.11 Unilateral primary osteoarthritis, right hip; E11.9 Type 2 diabetes mellitus without complications
CPT/HCPCS: 36415; 80048; 80307; 82040; 83036; 85025; 87641

== ENCOUNTER 2024-06-21 16:14 | Inpatient (IN) | payer MEDICARE, OTHER, SELFPAY ==
--- NOTE | 2024-05-29 07:48 | PC.NURSE ---
Report to the Outpatient Waiting Room, entrance under the green pavilion located off [facility], at time __6 AM on date _06/20/24 . Planned Procedure Time: ___7:30 AM .? Time changes happen often and if your time is changed the preop area will call you the afternoon before. - You and your visitor will be asked to self-screen and do not enter if you have any COVID symptoms. Please call surgeon if you need to reschedule. - A mask is optional within the hospital at this time. Patients may have clear liquids (water, carbonated beverages, clear teas, apple juice) until 3 hours prior to surgery ( 4:30 AM)with a maximum of 20 ounces. - No food from midnight until time of surgery and no smoking, or chewing tobacco (or any form of nicotine). No chewing gum, candy or mints. Take only the following medications with a SIP of water on the morning of surgery: ____NONE DO NOT STOP ANY OF YOUR OTHER PRESCRIPTION MEDICATIONS PRIOR TO SURGERY EXCEPT THE FOLLOWING Hold all vitamins and supplements for 3 days per anesthesiologist. LAST DOSE 06/16/24 Medications to discontinue per physician _ Please no make-up, nail pashto, hairspray, perfume, deodorant, or body powder the day of surgery.? No jewelry (including any body piercings) or valuables the day of surgery, leave them at home.? Please take a shower or bath the night before, or the morning of, surgery with an antibacterial soap.? Wear comfortable, loose fitting clothing.? Children are encouraged to wear pajamas. - Jewelry must be removed prior to entering the operating room.? Rings and piercings that are not removed may be cut off. - The hospital will not accept responsibility for valuables.? - Please leave all valuables, including medications, at home the day of surgery. If you are going home after surgery, a licensed superintendent drivers must drive you home.? - NO public transportation without another adult if you receive anesthesia. - We recommend that an adult stay with you for 24 hours following discharge. - We also recommend that you do not drive, make important decision, drink alcoholic beverages, or take any drugs that were not prescribed by your health care provider for at least 24 hours after your discharge time. For Pediatric surgeries, we recommend two adults accompany the child home. Follow any additional instructions given to you from your surgeon. VERBAL AND WRITTEN instructions given to ___PATIENT AND WIFE and asked if any additional questions and then verbalized understanding. Patient advised to call surgeon office or pre surgery nurse liaison [phone] if any additional questions.
[2024-05-29 07:52] VITALS: BMI 35.9
[2024-05-29 08:41] VITALS: BP 141/89; PULSE 74; RESP 18; TEMP 37.1; O2SAT 98
--- NOTE | 2024-06-19 13:03 | P.PNAN_ITS ---
Anes - Initial Pre Proc Eval Procedure: Operation Date: 06/20/24 07:30 Proposed Procedures p Right Total Hip Arthroplasty - Pramod King MD Date/Time: 06/19/24 13:03 Surgeon: Pramod King MD Pre Op Diagnosis: primary oa right hip Patient Data Age: 69 Gender: M Height: 1.83 m Weight: 120.1 kg Last Vital Signs Temp 98.8 F 05/29/24 08:41 Pulse 74 05/29/24 08:41 Resp 18 05/29/24 08:41 BP 141/89 H 05/29/24 08:41 Pulse Ox 98 05/29/24 08:41 O2 Del Method Room Air 05/29/24 08:41 Allergies Allergy/AdvReac Type Severity Reaction Status Date / Time No Known Allergies Allergy Verified 05/29/24 09:24 Home Medications ?Medication ?Instructions ?Recorded ?Confirmed ?Type atorvastatin 40 mg tablet 40 mg PO DAILY 12/27/22 05/29/24 History data transfer cap, glargine,BT 12/27/22 05/29/24 History (Garrison Adin Pen Cap-Basaglar device) insulin pen,reusable,BT,aspart 12/27/22 05/29/24 History [InPen (Novolog or Fiasp) Blue] latanoprost 0.005 % eye drops 1 drp EACH EYE HS 12/27/22 05/29/24 History olmesartan 40 mg tablet 40 mg PO DAILY 12/27/22 05/29/24 History coenzyme Q10 100 mg capsule (Co 100 mg PO DAILY 05/29/24 05/29/24 History Q-10) insulin aspart U-100 100 unit/mL 1 sliding scale dose subcut DAILY 05/29/24 05/29/24 History (3 mL) subcutaneous pen (Novolog FlexPen U-100 Insulin aspart) insulin glargine 100 unit/mL (3 80 unit subcut QPM 05/29/24 05/29/24 History mL) subcutaneous pen (Lantus Solostar U-100 Insulin) olmesartan 20 1 tablet PO DAILY 05/29/24 05/29/24 History mg-hydrochlorothiazide 12.5 mg tablet aspirin 81 mg tablet,delayed 81 mg PO BID 14 days #28 tabs 06/20/24 Rx release oxycodone-acetaminophen 5 mg-325 1 - 2 tablet PO Q4-6H PRN pain 7 06/20/24 Rx mg tablet days #30 tabs Patient hx anesthesia problems: none Family hx anesthesia problems: none Results Review: All pre-operative results and documents have been reviewed as part of the pre- operative evaluation. [facility] Past Medical History Medical History History of stress test (~10/2022) Surgical History Surgical History H/O medial meniscus repair of right knee (~04/2022) Family History Family History Other Arthritis Cancer Social History Social History (Updated 05/29/24 @ 11:01 by JUWAN Farfan) Smoking packs per day: 2 Smoking cigarettes per day: 40.0 Years smoked: 50 Smoking pack-years: 100.00 Smoking status: Former smoker Tobacco type: cigarettes Smoking end date: 01/09/24 Additional smoking assessment comments: JACKLYN ANY FORM OF TOBACCO USE Alcohol intake: current Drinks per week: 4 Alcohol use details: socially Substance use: current Substance use type: does not use Do You Feel Safe in your Home?: Yes Lack of Transportation: No Lack of Food: Never True Current Housing: I Have Housing Concerned About Future Housing: No Difficulty Paying Gas/Electric Bills: No Difficulty Paying for Meds: No Currently Unemployed: No Education: High School Diploma/GED Difficulty w/ Childcare or Family Care: No Living arrangements: with family Spiritual care concerns: No Anes - Eval Final PreProcedure Day of Procedure 06/19/24 13:03 Patient weight: obese Heart: regular rate and rhythm Lungs: clear to auscultation Airway: Mallampati scale class III Neurological: alert and oriented Last oral intake: >/= 8 hours ASA classification: III Emergent: no Anesthetic plan: proceed Anesthesia type and monitoring: general ETT and standard monitoring Results Review: All pre-operative results and documents have been reviewed as part of the pre- operative evaluation. Informed Consent: The patient's anesthetic plan and its attendant risks and benefits were discussed with the patient/family/POA. Questions were solicited and answers provided to the satisfaction of the patient/family/POA.
[2024-06-20] VITALS (14 sets, daily range): BP systolic 123–162; BP diastolic 61–86; PULSE 78–98; RESP 12–18; TEMP 35.5–36.9; O2SAT 93–100; BMI 34.9
--- OUTSIDE RECORDS SUMMARY | 2024-06-20 00:21 | XMS_ITS | Clinical Summary ---
Author Organization [facility] [address] Address [address] [place] [address] Care Team Providers Care Dampener Operator Name Role Phone Armen Roberson MD Unavailable [phone] Glen Thompson MD Unavailable [phone] Savage Potter MD Primary Care Provider [phone] Allergies No known active allergies Medications latanoprost [...] SUBCUTANEOUSLY DAILY 75 mL 3 4 Active blood-glucose sensor (Dexcom G6 Sensor) device Dexcom G6 sensor use for 10 days to monitor blood sugar. 9 each 5 Active Active Problems Problem Noted Date Diagnosed [...] (02/17/2022): Added automatically from request for surgery [id number] Idiopathic osteoarthritis 09/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 Assessment & Plan (04/16/2021 3:50 PM HARNESS BUILDER): A1c at goal on current therapy. Labs UTD. Recommend yearly eye exams. Mixed hyperlipidemia 04/16/2021 Assessment & Plan (01/11/2024 10:26 AM CDT): At goal on current therapy. Assessment & Plan (06/21/2022 10:20 AM CDT): At goal on current therapy. Assessment & Plan (10/16/2021 9:40 AM CDT): At goal on current therapy. Assessment & Plan (04/16/2021 3:49 PM HARNESS BUILDER): At goal on current therapy. Hypertension, essential [...] therapy. Assessment & Plan (04/16/2021 3:49 PM HARNESS BUILDER): At goal on current therapy. Encounters Date Type Department Care Team Description 06/06/2024 [facility] [address] [facility] [address] [place] [address] Glen Thompson MD call from pharmacy 05/30/2024 8:20 AM HARNESS BUILDER Office Visit [facility] Surgery [address] [facility] [address] [place] [id number] Hardik Solano MD Prostate cancer (HCC) (Primary Dx) 05/24/2024 10:45 AM HARNESS BUILDER Lab [facility] Office Building 1 Lab [facility] [place] [address] Prostate cancer (HCC) from Last 3 Months [...] uit: Not Asked; Counseling Given: Not Answered [facility] Utilities Answer Date Recorded In the past 12 months has th e [employer], gas, oil, or water company threatened to shut off services in your [...] often do you attend chur ch or bahai services? 1 to 4 times per year 05/11/2023 Do you belong to any clubs o r organizations such as yazidism groups, unions, fraternal or athletic groups, or [...] place to sleep or slept in a half-way (including now)? No 05/11/2023 Personal Safety Answer Date Recorded Have you ever been in or are you currently in a harmful physical or emotional relationship or is someone making you feel afraid or unsafe? Denies 05/10/2023 Sex and Gender Information Value Date Recorded Sex Assigned at Not on file Legal Sex Male 3:17 AM HARNESS BUILDER Gender Identity Male 07/30/2021 9:13 AM CDT Sexual Orientation Not on file Obstetrics History Last Filed Vital Signs Vital Sign Reading Time Taken Comments Blood Pressure 138/87 01/11/2024 10:01 AM CDT Pulse 85 01/11/2024 10:01 AM CDT Temperature 36.9 C (98.4 F) 05/11/2023 10:27 AM HARNESS BUILDER Respiratory Rate 24 05/11/2023 10:27 AM HARNESS BUILDER Oxygen Saturation 94% 05/11/2023 10:27 AM HARNESS BUILDER Inhaled Oxygen Concentration - - Weight 114.8 kg (253 lb) 05/30/2024 8:10 AM HARNESS BUILDER Height 182.9 cm (6') 05/30/2024 8:10 AM HARNESS BUILDER Body Mass Index 34.31 05/30/2024 8:10 AM HARNESS BUILDER Plan of Treatment Health Maintenance Due Date [...] 11/2021, 04/16/2021, Additional history exists Covid-19 Vaccine (4 - 2023-2 5 season) 2023 [...] Care Management Worsening( 10:16 AM CDT) Karissa Dickens, RN Note: Problem: Chronic Pain Goals: 1. Minimize further functional decline 2. Maximize quality of life 3. Control pain Strategies: - Activity/exercise program recommendation - Conservative stepwise pain medicine strategy with multi-disciplinary approach - Recommend healthy lifestyle strategies and compensatory methods as needed Medical Devices Implanted Type Area Food Writer Device Identifier Shelf Expiration Date Model / Serial / Lot Dental Implant Mouth Procedures Procedure Name Priority Date/Time Associated Diagnosis Comments PSA DIAGNOSTIC Routine 05/24/2024 11:03 AM HARNESS BUILDER Prostate cancer (HCC) POCT HEMOGLOBIN A1C Routine 01/11/2024 12:55 PM CDT Type 1 diabetes mellitus without complication (HCC) CT LUNG CANCER SCREENING Schedule Routine, Read Routine (OP Routine) 07/31/2023 12:37 PM CDT Nicotine dependence, cigarettes, uncomplicated EGFR Routine 05/11/2023 4:43 AM HARNESS BUILDER POCT LIPID PANEL Routine 06/21/2022 10:3 6 AM CDT Mixed hyperlipidemia ALBUMIN CREATININE RATIO, URINE Routine 10/15/2021 11:15 AM CDT Type 1 diabetes mellitus with hyperglycemia (HCC) TSH Routine 10/15/2021 11:15 AM CDT Type 1 diabetes mellitus with hyperglycemia (HCC) from Last 3 Months or Most Recently Relevant to Health Maintenance Results * PSA diagnostic (05/24/2024 11:03 AM HARNESS BUILDER) PSA-Total <0.10 <=5.40 ng/mL Comment: Interpretive Data [...] data last revised 21. Testing performed by: [facility], [address] [place] [address]., [address] Blood 05/24/2024 11:0 3 AM HARNESS BUILDER 05/24/2024 12:44 PM HARNESS BUILDER us Hardik Solano MD LAB BLOOD ORDERABLES Final Resul t [facility] [address] [facility] [place] [address] * POCT hemoglobin A1c (01/11/2024 12:55 PM CDT) Hemoglobin A1C, POC 7.4 4.0 - 5.6 % Capillary blood 01/11/2024 1 2:55 PM CDT us Glen Thompson MD POINT OF CARE TEST [...] Roxanne Chavarria M.D. TW: TW Report ID: [id number] Reading Location: [place] [address] Procedure Note Roxanne Chavarria MD - 08/01/2023 [...] Roxanne Chavarria M.D. TW: TW Report ID: [id number] Reading Location: [place] [address] Savage Potter MD IMG CT PROCEDURES Final R esult * eGFR (05/11/2023 4:43 AM HARNESS BUILDER) eGFR 47 mL/min/1. 73 m2 [facility] [...] last reviewed 2021. Blood 05/11/2023 4:43 AM HARNESS BUILDER 05/11/2023 5:02 AM HARNESS BUILDER Hardik Solano MD LAB BLOOD ORDERABLES Final Resul t [facility] [address] [facility] Department [place] [address] * POCT lipid panel (06/21/2022 10:36 AM CDT) Cholesterol, POC <100 mg/dL HDL, POC 28 mg/dL Triglycerides, POC 72 mg/dL LDL Cholesterol POC n/a mg/dL Chol/HDL Ratio, POC n/a Non-HDL Cholesterol, POC n/a mg/dL Cholesterol Total, POC <100 mg/dL Capillary blood 06/21/2022 1 0:36 AM CDT Glen Thompson MD POINT OF CARE TEST ORDE RABLES Final Result * Albumin Creatinine Ratio, Urine [...] - 10/16/2021 9:10 AM CDT Performed at: 01 - [facility] [address] [id number] Skin Care Consultant: Surinder Hernandez PhD, Phone: [phone] Glen Thompson MD LAB URINE ORDERABLES Fi nal Result [facility] * TSH (10/15/2021 11:15 AM CDT) TSH 2.130 0.450 - 4.500 uIU/mL [facility] - 01 Blood specimen (specimen) 10/15/2021 11:15 AM CDT 10/15/2021 Narrative [facility] - 10/16/2021 9:10 AM CDT Performed at: - [facility] [address] [id number] Skin Care Consultant: Surinder Hernandez PhD, Phone: [phone] Glen Thompson MD LAB BLOOD ORDERABLES Fi nal Result [facility] - 01 from Last 3 Months or Most Recently Relevant to Health Maintenance Insurance [employer] [facility] [id number] MEDICARE Ning [facility] [id number] MEDICARE [facility] [id number] MEDICARE [employer] [facility] [id number] MEDICARE Advance Directives For more information, please contact: [phone] * Full Code (Latest Code Status on File) Date Activated Date Inactivated Comments 05/10/2023 3:47 PM 05/11/2023 4:29 PM Care Teams Dampener Operator Relationship Specialty Start Date End Date Savage [place] MD [address] [facility] [address] [place] [address] PCP - General Family Medicine 06/23/23 Armen Roberson MD [address] [address] Consulting Physician Orthopedic Surgery 04/19/22 Glen Thompson MD [address] [facility] [address] [place] [address] Consulting Physician Endocrinology Diabetes & Metabolism 05/02/23
--- OUTSIDE RECORDS SUMMARY | 2024-06-20 00:21 | XMS_ITS | Clinical Summary ---
Author Organization [facility] Address [facility] [place] [address] Care Team Providers Care Painter Rough Name Role Phone Savage Potter MD Primary Care Provider [phone] Allergies No known active allergies Medications atorvastatin (LIPITOR) 40 MG tablet Take 1 tablet (40 mg total) by mouth daily. 2 Active Continuous Glucose Sensor (DEXCOM G7 SENSOR) [facility] 4 Active Olmesartan Medoxomil-HCTZ 20-12.5 MG Tab Take 1 tablet by mouth daily. 3 Active NOVOLOG FLEXPEN 100 UNIT/ML injection (PEN) INJECT APPROXIMATELY 150 UNITS DAILY ON SLIDING SCALE 5 Active LANTUS SOLOSTAR 100 UNIT/ML injection (PEN) INJECT 80 UNITS SUBCUTANEOUSLY DAILY 4 Active B-D ULTRAFINE III SHORT PEN 31G X 8 MM [facility] 4 Active latanoprost (XALATAN) 0.005 % ophthalmic [...] Influenza Adult (#1) 2024 03/02/2016 PHQ-2 (Physician [place]) 04/10/2024 01/03/2024 RSV Immunization or 60+ Years (1 - 1-dose 75+ series) 2032 AAA SCREENING Completed 03/14/2023 Meningococcal B Vaccine Aged Out No l onger eligible based on patient's age to complete this topic Meningococcal Vaccine Aged Out No dank diandra eligible based on patient's age to complete this topic RSV Immunizations Under 20 Months Aged Out No longer eligible b ased on patient's age to complete this topic Insurance MEDICARE [employer] [facility] Care Teams Painter Rough Relationship Specialty Start Date End Date Savage [place] MD [address] [place] [address] PCP - General 09/13/23
--- OUTSIDE RECORDS SUMMARY | 2024-06-20 00:21 | XMS_ITS | Referral Summary ---
Author Organization [facility] [address] [facility] Address [address] [place] [address] Care Team Providers Care Optical Effects Line Up Person Name Role Phone Armen Roberson MD Unavailable [phone] Glen Thompson MD Unavailable [phone] Savage Potter MD Primary Care Provider [phone] Encounters Date Type Department Care Team Description 06/06/2024 [facility] [address] [facility] [address] [place] [address] Glen Thompson MD call from pharmacy 05/30/2024 8:20 AM OPERATIONS RECRUITER Office Visit [facility] [address] [place] [address] [place] [address] Hardik Solano MD Prostate cancer (HCC) (Primary Dx) 05/24/2024 10:45 AM OPERATIONS RECRUITER Lab [facility] Office Building [address] [place] [address] Prostate cancer (HCC) from Last 3 Months [...] (02/17/2022): Added automatically from request for surgery [id number] Idiopathic osteoarthritis 09/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 Assessment & Plan (04/16/2021 3:50 PM OPERATIONS RECRUITER): A1c at goal on current therapy. Labs UTD. Recommend yearly eye exams. Mixed hyperlipidemia 04/16/2021 Assessment & Plan (01/11/2024 10:26 AM CDT): At goal on current therapy. Assessment & Plan (06/21/2022 10:20 AM CDT): At goal on current therapy. Assessment & Plan (10/16/2021 9:40 AM CDT): At goal on current therapy. Assessment & Plan (04/16/2021 3:49 PM OPERATIONS RECRUITER): At goal on current therapy. Hypertension, essential [...] therapy. Assessment & Plan (04/16/2021 3:49 PM OPERATIONS RECRUITER): At goal on current therapy. Immunizations Immunization Administration Dates Next Due Pfizer SARS-CoV-2 Monovalent Vaccination (12+ Yrs) PURPLE 04/16/2021 Social History Tobacco Use Types Packs/Day Years Used Date Smoking Tobacco: Every Day Cigarettes 2 50 Smokeless Tobacco: Never Tobacco Cessation:Ready to Q uit: Not Asked; Counseling Given: Not Answered [facility] [employer] Answer Date Recorded In the past 12 months has e [employer], gas, oil, or water [employer] threatened to shut off services in your [...] often do you attend chur ch or holiness services? 1 to 4 times per year 05/11/2023 Do you belong to any clubs o r organizations such as jainism groups, unions, fraternal or athletic groups, or [...] place to sleep or slept in a correction (including now)? No 05/11/2023 Personal Safety Answer Date Recorded Have you ever been in or are you currently in a harmful physical or emotional relationship or is someone making you feel afraid or unsafe? Denies 05/10/2023 Sex and Gender Information Value Date Recorded Sex Assigned at Not on file Legal Sex Male 3:17 AM OPERATIONS RECRUITER Gender Identity Male 07/30/2021 9:13 AM CDT Sexual Orientation Not on file Last Filed Vital Signs Vital Sign Reading Time Taken Comments Blood Pressure 138/87 01/11/2024 10:01 AM CDT Pulse 85 01/11/2024 10:01 AM CDT Temperature 36.9 C (98.4 F) 05/11/2023 10:27 AM OPERATIONS RECRUITER Respiratory Rate 24 05/11/2023 10:27 AM OPERATIONS RECRUITER Oxygen Saturation 94% 05/11/2023 10:27 AM OPERATIONS RECRUITER Inhaled Oxygen Concentration - - Weight 114.8 kg (253 lb) 05/30/2024 8:10 AM OPERATIONS RECRUITER Height 182.9 cm (6') 05/30/2024 8:10 AM OPERATIONS RECRUITER Body Mass Index 34.31 05/30/2024 8:10 AM OPERATIONS RECRUITER Plan of Treatment Not on file Goals [...] as needed Medical Devices Implanted Type Area Manager Poker Device Identifier Shelf Expiration Date Model / Serial / Lot Dental Implant Mouth Procedures Procedure Name Priority Date/Time Associated Diagnosis Comments PSA DIAGNOSTIC Routine 05/24/2024 11:03 AM OPERATIONS RECRUITER Prostate cancer (HCC) POCT HEMOGLOBIN A1C Routine 01/11/2024 12:55 PM CDT Type 1 diabetes mellitus without complication (HCC) CT LUNG CANCER SCREENING Schedule Routine, Read Routine (OP Routine) 07/31/2023 12:37 PM CDT Nicotine dependence, cigarettes, uncomplicated EGFR Routine 05/11/2023 4:43 AM OPERATIONS RECRUITER POCT LIPID PANEL Routine 06/21/2022 10:3 6 AM CDT Mixed hyperlipidemia ALBUMIN CREATININE RATIO, URINE Routine 10/15/2021 11:15 AM CDT Type 1 diabetes mellitus with hyperglycemia (HCC) TSH Routine 10/15/2021 11:15 AM CDT Type 1 diabetes mellitus with hyperglycemia (HCC) from Last 3 Months or Most Recently Relevant to Health Maintenance Results * PSA diagnostic (05/24/2024 11:03 AM OPERATIONS RECRUITER) PSA-Total <0.10 <=5.40 ng/mL Comment: Interpretive Data [...] data last revised 21. Testing performed by: [facility], [address] [place] [address]., [address] Blood 05/24/2024 11:0 3 AM OPERATIONS RECRUITER 05/24/2024 12:44 PM OPERATIONS RECRUITER us Hardik Solano MD LAB BLOOD ORDERABLES Final Resul t [facility] [address] [facility] Department [place] [address] * POCT hemoglobin A1c (01/11/2024 [...] Roxanne Chavarria M.D. TW: TW Report ID: [id number] Reading Location: [id number] Procedure Note Roxanne Chavarria MD - 08/01/2023 [...] Roxanne Chavarria M.D. TW: MADHAVI Report ID: [id number] Reading Location: [id number] us Savage Potter MD IMG CT PROCEDURES Final R esult * eGFR (05/11/2023 4:43 AM OPERATIONS RECRUITER) eGFR 47 mL/min/1. 73 m2 [facility]VER [...] last reviewed 2021. Blood 05/11/2023 4:43 AM OPERATIONS RECRUITER 05/11/2023 5:02 AM OPERATIONS RECRUITER Hardik Solano MD LAB BLOOD ORDERABLES Final Resul t [facility] [address] [facility] Department [place] [address] * POCT lipid panel (06/21/2022 10:36 AM CDT) Pathologist [facility] Cholesterol, POC <100 mg/dL HDL, POC 28 mg/dL Triglycerides, POC 72 mg/dL LDL Cholesterol POC n/a mg/dL Chol/HDL Ratio, POC n/a Non-HDL Cholesterol, POC n/a mg/dL Cholesterol Total, POC <100 mg/dL Capillary blood 06/21/2022 1 0:36 AM CDT Glen Thompson MD POINT OF CARE TEST ORDE RABLES Final Result * Albumin Creatinine Ratio, Urine (10/15/2021 11:15 AM CDT) [facility] Creatinine ur 70.2 Not Estab. mg/dL [facility] - 01 Microalbumin, ur 5.8 Not Estab. ug/mL [facility] - 01 Microalbumin/cre at ratio 8 0 - 29 mg/g creat [facility] - 01 Comment: Normal: 0 - 29 Moderately increased: 30 - 300 Severely increased: >300 Urine 10/15/2021 11:1 5 AM CDT 10/15/2021 Narrative [facility] - 10/16/2021 9:10 AM CDT Performed at: [address] [place] [id number] Asset Protection Greeter: Surinder Hernandez PhD, Phone: [phone] us Glen Thompson MD LAB URINE ORDERABLES Fi nal Result [facility] - 01 * TSH (10/15/2021 11:15 AM CDT) Pathologist [facility] TSH 2.130 0.450 - 4.500 uIU/mL [facility] - 01 Blood specimen (specimen) 10/15/2021 11:15 AM CDT 10/15/2021 Narrative [facility] - 10/16/2021 9:10 AM CDT Performed at: - [facility] [address] [id number] Asset Protection Greeter: Surinder Hernandez PhD, Phone: [phone] us Glen Thompson MD LAB BLOOD ORDERABLES Fi nal Result [facility] - 01 from Last 3 Months or Most Recently Relevant to Health Maintenance Insurance [facility] [id number] MEDICARE [facility] [id number] MEDICARE [facility] [id number] MEDICARE [facility] [id number] MEDICARE Advance Directives For more information, please contact: [phone] * Full Code (Latest Code Status on File) Date Activated Date Inactivated Comments 05/10/2023 3:47 PM 05/11/2023 4:29 PM Care Teams Optical Effects Line Up Person Relationship Specialty Start Date End Date Savage Potter MD [address] [address] PCP - General Family Medicine 06/23/23 Armen Roberson MD [address] [address] Consulting Physician Orthopedic Surgery 04/19/22 Glen Thompson MD [address] [facility] [address] [place] [address] Consulting Physician Endocrinology Diabetes & Metabolism 05/02/23
--- OUTSIDE RECORDS SUMMARY | 2024-06-20 00:21 | XMS_ITS ---
Author Organization [facility] [address] Address [address] [place] [address] Care Team Providers Care Livestock Speculator Name Role Phone Armen Roberson MD Unavailable Glen Thompson MD Unavailable [phone] Savage Potter MD Primary Care Provider [phone] Active Problems Problem Noted Date Diagnosed Date [...] (02/17/2022): Added automatically from request for surgery [id number] Idiopathic osteoarthritis 09/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 Assessment & Plan (04/16/2021 3:50 PM CAR WORKER HELPER): A1c at goal on current therapy. Labs UTD. Recommend yearly eye exams. Mixed hyperlipidemia 04/16/2021 Assessment & Plan (01/11/2024 10:26 AM CDT): At goal on current therapy. Assessment & Plan (06/21/2022 10:20 AM CDT): At goal on current therapy. Assessment & Plan (10/16/2021 9:40 AM CDT): At goal on current therapy. Assessment & Plan (04/16/2021 3:49 PM CAR WORKER HELPER): At goal on current therapy. Hypertension, essential [...] therapy. Assessment & Plan (04/16/2021 3:49 PM CAR WORKER HELPER): At goal on current therapy. Current Treatment [...]
--- OUTSIDE RECORDS SUMMARY | 2024-06-20 00:21 | XMS_ITS | Clinical Summary ---
Author Organization [facility] [employer] Address [address] [place] [address] Care Team Providers Care Manager File Name Role Phone Jesus Garcia MD Primary Care Provider [phone] Source Comments [facility],non-owned Affiliates and Associated Physician Practices is amultiple site organization consisting of ambulatory clinics and hospital sitesin [place], [place], [place] and [place]. This disclosure is being madepursuant to the Care Everywhere program and may not contain all information available regarding this patient. Last updated 17.[facility] [employer] Social History Tobacco Use Types Packs/Day Years [...] complete this topic MENINGOCOCCAL (Group B) VACCINE SHARED DECISION-MAKING Aged Out No longer eligible based on patient's age to complete this topic MENINGOCOCCAL GROUPS A/C/Y/W VACCINE Aged Out No longer eligible b ased on patient's age to complete this topic Care Teams Manager File Relationship Specialty Start Date End Date Jesus Garcia MD [address] [place] [address] PCP - General Orthopedic Surgery 09/28/21
--- OUTSIDE RECORDS SUMMARY | 2024-06-20 00:21 | XMS_ITS | Patient Health Summary ---
Author Organization [facility] [employer] Address [address] [place] [address] Care Team Providers Care Field Supervisor Name Role Phone Jesus Garcia MD Primary Care Provider [phone] [facility],non-owned Affiliates and Associated Physician Practices is amultiple site organization consisting of ambulatory clinics and hospital sitesin [place], [place], [place] and [place]. This disclosure is being madepursuant to the Care Everywhere program and may not contain all information available regarding this patient. Last updated 17.[facility] [employer] Social History Tobacco Use Types Packs/Day Years [...] Garcia MD DIAGNOSTIC IMAGING ORDERABLES Care Teams Field Supervisor Relationship Specialty Start Date End Date Jesus Garcia MD [address] [facility] [address] [place] [address] PCP - General Orthopedic Surgery 09/28/21
--- OUTSIDE RECORDS SUMMARY | 2024-06-20 00:21 | XMS_ITS | Encounter Summary ---
Author Organization [facility] Address [address] [place] [address] Care Team Providers Care Heat Pump Installer Name Role Phone Savage Potter MD Primary Care Provider [phone] Encounter Details Date Type Department Care Team (Late st Contact Info) Description 01/03/2024 MyChart Message Enc [facility] Medical [facility] Orthopedic & Sports Medicine - [place] [address] [place] [address] Cuate Pope MD [address] [place] [address] Smoking Social History Tobacco Use Types Packs/Day [...] on filedocumented in this encounter Care Teams Heat Pump Installer Relationship Specialty Start Date End Date Savage Potter MD [address] [place] [address] PCP - General 09/13/23 documented as of this encounter
--- OUTSIDE RECORDS SUMMARY | 2024-06-20 00:21 | XMS_ITS | Referral Summary ---
Author Organization [facility] Address [address] [facility] [place] [address] Care Team Providers Care Integrity Director Name Role Phone Jesus Garcia MD Primary Care Provider [phone] Source Comments [facility],non-owned Affiliates and Associated Physician Practices is amultiple site organization consisting of ambulatory clinics and hospital sitesin [place], [place], [place] and [place]. This disclosure is being madepursuant to the Care Everywhere program and may not contain all information available regarding this patient. Last updated 17.[facility] [employer] Social History Tobacco Use Types Packs/Day Years Used Date Smoking Tobacco: Never Assessed Sex and Gender Information Value Date Recorded Sex Assigned at Not on file Gender Identity Not on file Sexual Orientation Not on file Plan of Treatment Not on file Care Teams Integrity Director Relationship Specialty Start Date End Date Jesus Garcia MD [address] [place] [address] PCP - General Orthopedic Surgery 09/28/21
--- OUTSIDE RECORDS SUMMARY | 2024-06-20 00:21 | XMS_ITS | Encounter Summary ---
Author Organization [facility] Address [facility] [place] [address] Care Team Providers Care Director Public Service Name Role Phone Anny Holland NP Primary Care Provider [phone] Rogerio Putnam MD Primary Care Provider [phone] Savage Potter MD Primary Care Provider [phone] Encounter Details Date Type Department Care Team (Latest Contact Info) Description 02/13/2018 Abstract [facility] Kristina Chatman MD Social History [...] on filedocumented in this encounter Care Teams Director Public Service Relationship Specialty Start Date End Date Anny Holland NP [address] [place] [address] PCP - General 06/16/15 07/06/22 Rogerio Putnam MD [address] [address] PCP - General 07/07/22 09/12/23 Savage Potter MD [address] [place] [address] PCP - General 09/13/23 documented as of this encounter
--- OUTSIDE RECORDS SUMMARY | 2024-06-20 00:21 | XMS_ITS | Continuity of Care Document ---
Author Organization [facility] Address [address] [place] [address] Phone Care Team Providers Care Car Chaser Name Role Phone Radha Shantanudorianjaquan Unavailable Unavailable [...] Procedures Procedure Date Office/outpatient visit,[facility] 2021 Asp/inject major joint or bursa w/o US g uidance Kenalog 40mg/mL Advance Directives Directive Yes / No Effective Date File Name No Information Encounters Encounter Description Practice Location Reason(s) For Visit Diagnoses Date Provider Providers Copied on Encounter [facility], [address] [place] [address], [id number], [place] tel:[phone] [facility] No Information [place]. [address] [place] [address], [place] [address], [place], [place], [id number] , [place]. tel:[phone] Office/outpa tient visit,[facility], [address], [id number], tel:[phone] [facility] Professional [facility] Right Knee (chief complaint) Pain in right kneeUnilateral primary osteoarthritis, right kneePain in right lower legLocalized edema 2 Sisi Gibson. [address] [facility], [address], [place], [place], [id number] , [place]. tel: [phone] Family History Family Member Type Diagnosis Age At Onset Problem Family history of Cancer, un known Problem Family history of hypertensi on Problem Family history of Diabetes monet verena Payers Payer name Insurance type Covered libertarian ID Rush parker(s) [employer] CI [id number] Social History Type Description Quantity Date Captured [...] noticeable. 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 He has a 30-munq-smsr history of smoking, and is a social [...] discharged in stable condition. Dictation completed with [employer] Practice Edition software, grammatical variances in spelling errors may inadvertently occur. Related to Localized edema Assessments Type Assessment Date No Information Patient Care Teams Name Effective Dates (start - stop) Status Members No Information
--- OUTSIDE RECORDS SUMMARY | 2024-06-20 00:21 | XMS_ITS ---
Author Organization Unknown Medications Medication Instructions Effective Dates (start - stop) Status 3 ML insulin aspart, human 1 00 UNT/ML Pen Injector [NovoLog] - Complet ed 3 ML insulin aspart, human 1 00 UNT/ML Pen Injector [NovoLog] - Complet ed hydrochlorothiazide 12.5 MG / olmesartan medoxomil 20 MG Oral Tablet - Completed cephalexin 250 MG Oral Capsule 2023-05-11 T00:00:00Z - Completed 3 ML insulin aspart, human 1 00 UNT/ML Pen Injector [NovoLog] - Complet ed atorvastatin 40 MG Oral Tablet 2023-09-14 T00:00:00Z - Completed - - Compl eted - - Compl eted - - Compl eted 3 ML insulin glargine 100 UN T/ML Pen Injector [Lantus] - Completed latanoprost 0.05 MG/ML Ophth almic Solution - Completed 3 ML insulin glargine 100 UN T/ML Pen Injector [Lantus] - Completed atorvastatin 40 MG Oral Tablet 2023-03-16 T00:00:00Z - Completed - - Compl eted hydrochlorothiazide 12.5 MG / olmesartan medoxomil 20 MG Oral Tablet - Completed amoxicillin 500 MG Oral Capsule 2023-05-11 5T00:00:00Z - Completed - - Compl eted hydrochlorothiazide 12.5 MG / olmesartan medoxomil 20 MG Oral Tablet - Completed latanoprost 0.05 MG/ML Ophth almic Solution - Completed - - Compl eted hydrochlorothiazide 12.5 MG / olmesartan medoxomil 20 MG Oral Tablet - Completed - - Compl eted latanoprost 0.05 MG/ML Ophth almic Solution - Completed 3 ML insulin glargine 100 UN T/ML Pen Injector [Lantus] - Completed 3 ML insulin aspart, human 1 00 UNT/ML Pen Injector [NovoLog] - Complet ed oxycodone hydrochloride 5 MG Oral Tablet - Completed - - Compl eted hydrochlorothiazide 12.5 MG / olmesartan medoxomil 20 MG Oral Tablet - Completed atorvastatin 40 MG Oral Tablet 2023-06-14 T00:00:00Z - Completed 3 ML insulin glargine 100 UN T/ML Pen Injector [Basaglar] - Completed Patient Care team information Name Category Status Period Participants - - Proposed period not known -
[2024-06-20 06:37] LABS: Glucose Point of Care 198 mg/dl (65-105)
[2024-06-20] MEDS: TRANEXAMIC ACID 1,000MG/ISO100 1,000 MG/100 ML BAG 200 MG IVPB (07:10)
[2024-06-20] MEDS: ACETAMINOPHEN 500 MG TABLET 1000 MG PO (07:10)
[2024-06-20] MEDS: LACTATED RINGERS 1,000 ML 30 ML IV CONT ×2 (07:11→10:10)
--- NOTE | 2024-06-20 07:17 | WPDHPUPDATE1 ---
History and Physical Update Update Date/Time: 06/20/24 07:17 History and Physical has been reviewed, including an updated exam of the patient. There are NO changes in the patient's condition. Risks, benefits, and alternatives have been discussed and questions answered. Patient agrees to proceed with procedure.
[2024-06-20] MEDS: ceFAZolin 2 GM/D5W 50 ML 2 GM/50 ML BAG IVPB ×3 (07:32→23:06)
[2024-06-20] MEDS: SODIUM CHLORIDE 0.9% IV 37.7 ML, MORPHINE SULFATE INJ (*CRX) 2 MG, ROPivacaine HCL 1% 2... INFILTRATE (08:29)
[2024-06-20] MEDS: TRANEXAMIC ACID 1,000 MG/10 ML AMPUL 1000 MG IV PUSH (09:37)
[2024-06-20] MEDS: fentaNYL CITRATE INJ (*CRX) 100 MCG/2 ML VIAL 25 MCG IV PUSH ×4 (10:26→11:03)
--- NOTE | 2024-06-20 10:54 | SUR.PHASEI ---
1030 - dr. rodriguez called and aware of accucheck of 279. no orders received at this time
--- NOTE | 2024-06-20 12:24 | PC.NURSE ---
This patient, Desmond Malik, was admitted to [facility] Surg Room 309-01. Patient/family oriented to hospital policies and general routines including ID bracelet, bed and alarms, visiting hours, pain management, procedures, bathroom and other care routines, personal items, smoking policy, room service/diet, and visiting hours. Information on how to activate the Rapid Response Team has been discussed. Patient/Family are encouraged to report perceived risks to care and to ask questions if they do not understand what they are told or what they should do.
[2024-06-20] MEDS: oxyCODONE/ACETAMINOPHEN (*CRX) 10-325 MG TABLET 1 TAB PO ×2 (12:35→20:09)
[2024-06-20] MEDS: ACETAMINOPHEN 325 MG TABLET 650 MG PO ×3 (12:36→23:02)
[2024-06-20 12:37] LABS: Basophils Percent Auto 0.3 % (0.2-1.2); Eosinophils Percent Auto 0.2 % (0-4.4); Hematocrit 34.9 % (42.0-52.0); Hemoglobin 11.6 g/dL (14.0-18.0); Immature Granulocyte Absolute 0.05 K/mm3 (0.00-0.031); Immature Granulocyte Percent A 0.5 % (0-0.5); Lymphocytes Absolute Auto 0.61 K/mm3 (0.9-3.2); Lymphocytes Percent Auto 6.2 % (18.3-44.2); Mean Corpuscular HGB Conc 33.2 g/dl (32-36); Mean Corpuscular Hemoglobin 29.4 pg (26-34); Mean Corpuscular Volume 88.4 fl (80-100); Mean Platelet Volume 11.1 fl (7.4-10.4); Monocytes Absolute Auto 0.1 K/mm3 (0.1-0.6); Monocytes Percent Auto 1.4 % (2.6-8.5); Neutrophils Absolute Auto 8.9 K/mm3 (1.3-6.7); Neutrophils Percent Auto 91.4 % (45.5-73.1); Platelet Count Result 155 k/mm3 (150-375); Red Blood Count 3.95 M/mm3 (4.6-6.20); Red Cell Distribution Width 13.1 % (11.5-14.5); White Blood Count 9.8 K/mm3 (4.5-10.0)
--- NOTE | 2024-06-20 12:40 | PC.NURSE ---
RN called Hilton ECHEVERRIA with Dr. King's office to confirm insulin orders for patient. No answer at this time. Voicemail left.
[2024-06-20 12:47] LABS: Anion Gap 9 mmol/L (4-12); Blood Urea Nitrogen 24 mg/dL (9-20); Calcium 8.4 mg/dL (8.4-10.2); Carbon Dioxide 25 mmol/L (22-30); Chloride 102 mmol/L (98-107); Estimated CRCL calculation 62 ml/min; Estimated Glomerular Filt Rate 52; Glucose 326 mg/dL (65-110); Potassium 4.9 mmol/L (3.4-5.0); Sodium 136 mmol/L (137-145)
--- NOTE | 2024-06-20 13:51 | P.OP_ITS ---
Procedure Note - Detailed Date of Procedure 06/20/24 Pre-op Diagnosis Right hip degenerative arthritis. Post-op Diagnosis Same Procedure Performed Right Total Hip Arthroplasty Surgeon Pramod King MD Tab Builder Hannah Morales PA-C Anesthesia General Findings Excellent bone quality. Large stature. Description of Procedure The patient was given preoperative antibiotics. A general anesthetic was administered. The patient was carefully placed in the lateral decubitus position on the PEG board. The shoulders and hips were carefully positioned for component and leg length positioning reference. The hip was prepped and draped in the usual sterile fashion. A longitudinal incision was created over the posterior aspect of the greater trochanter. Careful dissection was brought down through the deep fascia with electrocautery. A minimally invasive optimized posterior approach to the hip was performed. The short external rotators and capsule were taken down in an L-shaped capsulotomy. The tissue was tagged for later repair using number 2 high strength suture. The femoral neck was measured and taken in situ. The femoral head was removed. The acetabulum was carefully exposed. The inferior capsule was released. The labrum was resected. The acetabulum was sequentially reamed to one over the intended cup size. The cup was impacted into position with excellent press-fit. Typical anatomic landmarks, including the bony contact points as well as the inferior transverse acetabular ligament were used to confirm cup positioning with preoperative templating. Attention was turned to the femur, which was carefully exposed. The hip was reamed and then broached sequentially. Excellent press-fit was obtained with the broach. The hip was trialed. Measurements were utilized, including the lesser trochanter as well as the center of the femoral head and the tip of the trochanter, and excellent assessment of the offset and leg lengths were confirmed. The real component was impacted into position. Trialing confirmed appropriate leg length and offset with soft tissue balancing as well apparent feel of the leg, both at the knee and the heel. Soft tissues were assessed using the the iliotibial band. Reduction of the posterior capsule and external rotators were also used as a secondary assessment. The hip was copiously irrigated with pulsatile lavage periodically throughout the procedure. The real components were then assembled and reduced. The hip was stable throughout typical maneuvers, including extension, external rotation to 70 degrees, the position of sleep as well as flexion to 90 degrees with internal rotation past 35 degrees. The shake test confirmed stability without impingement. Osteophytes were removed as necessary. The short external rotators and capsule were repaired back to the posterior trochanter through drill holes. The deep fascia was repaired with running number 2 barbed suture, followed by 2-0 Stratafix suture and 3-0 Stratafix suture in the dermis. Steri-Strips were placed on the skin, followed by a sterile occlusive dressing. There were no complications. Meticulous hemostasis was maintained with the AquaMantys device. The patient was brought to the recovery room in stable condition. There were no complications. Physician retail store assistant, Hannah Morales PA-C, required for surgery; including patient positioning, draping, tissue retraction, maintaining instrument position, hip dislocation/ relocation, wound closure, and dressing placement. Implants The Strykder Insignia hip stem, high offset size 5 , was utilized with excellent press-fit. The 58 mm Trident II acetabular component was impacted with excellent press-fit stability. 10 degree elevated polyethylene liner the +0, 36 mm Biolox ceramic femoral head was utilized. Estimated Blood Loss 300 Drains No Packing No Pathology None sent Complications No immediate complications Condition Stable Disposition PACU [facility] Billing Surgery - Charge Forward: Surgery Billing
--- NOTE | 2024-06-20 14:00 | PC.NURSE ---
RN called Hilton ECHEVERRIA with Dr. King's office to confirm insulin orders for patient. RN spoke with hospital receptionist and left message. Hilton ECHEVERRIA is currently in surgery, but hospital receptionist will get message to her as soon as she can.
--- NOTE | 2024-06-20 16:05 | P.CONIM_ITS ---
Assessment and Plan Assessment and plan (1) Status post total hip replacement, right: Code(s): Z96.641 - Presence of right artificial hip joint Status: Acute (2) Degenerative joint disease of right hip: Qualifiers: Osteoarthritis type: primary Qualified Code(s): M16.11 - Unilateral primary osteoarthritis, right hip Code(s): M16.11 - Unilateral primary osteoarthritis, right hip Status: Acute Assessment and Plan: * patient is postop day 0 from right total hip arthroplasty * continue hip precautions * continue neurovascular checks * continue incentive spirometry while awake * PT and OT ordered * continue pain control * weight-bearing as tolerated * continue ice q.6 hours for inflammation (3) Diabetes: Code(s): E11.9 - Type 2 diabetes mellitus without complications Status: Acute Assessment and Plan: patient has history of insulin resistance and normally takes 40-50 units with meals at home based on his sliding scale * Blood sugars ranging 198-326 * Hgb A1C 7.1 on 05/29/2024 * Accu checks AC/HS * high-dose SSI ordered * Lantus 80 units at HS ordered * will start mealtime dosing of 12 units with meals in addition to the high- dose sliding scale * hypoglycemic protocol in place * Diabetic diet ordered (4) Chronic kidney disease: Code(s): N18.9 - Chronic kidney disease, unspecified Status: Acute Assessment and Plan: * creatinine 1.37, EGFR 52 * baseline creatinine 1.17, EGFR greater than 60 * continue to trend (5) Hypertension: Code(s): I10 - Essential (primary) hypertension Status: Acute Assessment and Plan: * blood pressure ranging 123/71 to 151/67 * continue hydrochlorothiazide and Benicar (6) Hyperlipidemia: Code(s): E78.5 - Hyperlipidemia, unspecified Status: Acute Assessment and Plan: * continue aspirin and atorvastatin HPI Date of Consult Consult date: 06/20/24 Requesting Physician: Pramod King MD Primary Care Provider: Savage Potter, Consult Narrative Narrative: Desmond Mlaik is a 69 year old male hyperlipidemia, hypertension, osteoarthritis, Diabetes, prostate cancer status post prostatectomy who presented to the hospital for elective right total hip arthroplasty done by Dr. King, EBL 300ml. We were consulted for medical management. Patient states his pain is well controlled. He reports that he has insulin resistance and is concerned with his blood sugars going to 400 this admission. He states that he normally would give himself 40-50 units with his meals. He denies any other complaints at this time. Review of Systems 2 Review of Systems: All systems reviewed & are unremarkable except as noted in HPI and below PMFSH Past Medical History Medical History Chronic kidney disease Obesity (BMI 30-39.9) Diabetes Atherosclerotic heart disease Hypertension Hyperlipidemia History of stress test (~10/2022) Surgical History Surgical History H/O medial meniscus repair of right knee (~04/2022) Family History Family History Other Arthritis Cancer Social History Social History Smoking packs per day: 2 Smoking cigarettes per day: 40.0 Years smoked: 50 Smoking pack-years: 100.00 Smoking status: Former smoker Additional smoking assessment comments: JACK[place]N ANY FORM OF TOBACCO USE Alcohol intake: current Drinks per week: 4 Alcohol use details: socially Substance use: current Substance use type: does not use Do You Feel Safe in your Home?: Yes Lack of Transportation: No Lack of Food: Never True Current Housing: I Have Housing Concerned About Future Housing: No Difficulty Paying Gas/Electric Bills: No Difficulty Paying for Meds: No Currently Unemployed: No Education: High School Diploma/GED Difficulty w/ Childcare or Family Care: No Living arrangements: with family Spiritual care concerns: No Meds Home Medications and Allergies Home Medications ?Medication ?Instructions ?Recorded ?Confirmed ?Type atorvastatin 40 mg tablet 40 mg PO DAILY 12/27/22 06/20/24 History data transfer cap, glargine,BT 12/27/22 06/20/24 History ([place] Pen Cap-Basaglar device) insulin pen,reusable,BT,aspart 12/27/22 06/20/24 History [InPen (Novolog or Fiasp) Blue] latanoprost 0.005 % eye drops 1 drp EACH EYE HS 12/27/22 06/20/24 History coenzyme Q10 100 mg capsule (Co 100 mg PO DAILY 05/29/24 06/20/24 History Q-10) insulin aspart U-100 100 unit/mL 1 sliding scale dose subcut DAILY 05/29/24 06/20/24 History (3 mL) subcutaneous pen (Novolog FlexPen U-100 Insulin aspart) insulin glargine 100 unit/mL (3 80 unit subcut QPM 05/29/24 06/20/24 History mL) subcutaneous pen (Lantus Solostar U-100 Insulin) olmesartan 20 1 tablet PO DAILY 05/29/24 06/20/24 History mg-hydrochlorothiazide 12.5 mg tablet aspirin 81 mg tablet,delayed 81 mg PO BID 14 days #28 tabs 06/20/24 Rx release oxycodone-acetaminophen 5 mg-325 1 - 2 tablet PO Q4-6H PRN pain 7 06/20/24 Rx mg tablet days #30 tabs Allergies Allergy/AdvReac Type Severity Reaction Status Date / Time No Known Allergies Allergy Verified 06/20/24 07:56 Vital Signs Vital Signs - 24 hr 06/20/24 06:30 06/20/24 10:10 06/20/24 10:20 Temperature 98.3 F 97.9 F Pulse Rate 88 88 82 Respiratory Rate 14 15 18 Blood Pressure 161/74 H 160/79 H 132/78 Pulse Oximetry 98 100 99 Oxygen Delivery Room Air Simple Face Mask Room Air Oxygen Flow Rate 8 06/20/24 10:35 06/20/24 10:50 06/20/24 11:05 Temperature Pulse Rate 85 79 82 Respiratory Rate 18 16 12 Blood Pressure 160/76 H 144/84 H 135/81 Pulse Oximetry 95 94 93 Oxygen Delivery Room Air Room Air Room Air Oxygen Flow Rate 06/20/24 11:20 06/20/24 11:35 06/20/24 12:00 Temperature 95.9 F L Pulse Rate 78 78 80 Respiratory Rate 16 18 17 Blood Pressure 130/80 135/81 141/72 H Pulse Oximetry 95 96 95 Oxygen Delivery Room Air Room Air Oxygen Flow Rate 06/20/24 12:15 06/20/24 12:45 06/20/24 13:45 Temperature 96.2 F L 97.4 F L 98.1 F Pulse Rate 80 83 95 Respiratory Rate 17 17 17 Blood Pressure 141/61 H 123/71 151/67 H Pulse Oximetry 96 94 97 Oxygen Delivery Oxygen Flow Rate Exam 2 Narrative: General: In no acute distress, well nourished Head: atraumatic, no encephalopathy Eyes: PERRLA, sclera clear ENT: moist mucous membranes, nasal passages clear Neck: supple, no JVD, no adenopathy, trachea midline Cardiac: Normal S1 and S2. RRR, No murmur, gallops or friction rubs, peripheral pulses intact. Respiratory: Lungs clear to auscultation, no adventitious lung sounds, currently on room air Gastrointestinal: soft, non-distended, non-tender, normoactive bowel sounds. : voiding without difficulty. Extremities: moves all extremities well, no edema Skin: incision with OR dressing Right hip Neuro: Alert and oriented x4, cranial nerves intact, no neuro deficits. Psych: normal mood, normal affect, interactive Results Labs 06/20/24 12:31 06/20/24 12:31 Labs: Short CBC 06/20/24 Range/Units 12:31 WBC 9.8 (4.5-10.0) K/mm3 Hgb 11.6 L (14.0-18.0) g/dL Hct 34.9 L (42.0-52.0) % Plt Count 155 (150-375) k/mm3 BMP 06/20/24 12:31 Sodium 136 L Potassium 4.9 Chloride 102 Carbon Dioxide 25 BUN 24 H Creatinine 1.37 H Glucose 326 H Calcium 8.4 Imaging Radiologist's impression: EXAMINATION: XR hip RT min 2V DATE: 06/20/2024 10:46 INDICATION: Right total hip arthroplasty. Postop. TECHNIQUE: 2 views of right hip were obtained. COMPARISON: Right hip radiographs 05/27/2024 FINDINGS: There is a total right hip arthroplasty in near-anatomic alignment. No fracture. There is gas in the soft tissues, consistent with recent surgery. IMPRESSION: 1. Total right hip arthroplasty in near-anatomic alignment. Reviewed, dictated and finalized at location B. Quality VTE Prophylaxis VTE prophylaxis: mechanical ordered Hospitalist MIPS Advance Care Plan I have confirmed that the patient's Advanced Care Plan is present, code status is documented, or surrogate decision maker is listed in patient medical record.: Yes Medication Reconciliation I have utilized all available resources to obtain, update and review the patients current medications (includes all prescriptions, OTC, herbals, cannabis, and nutritional supplements).: Yes
[2024-06-20 17:01] LABS: Glucose Point of Care 404 mg/dl (65-105)
[2024-06-20] MEDS: oxyCODONE/ACETAMINOPHEN (*CRX) 5-325 MG TABLET 1 TABLET PO ×2 (17:02→23:43)
[2024-06-20] MEDS: SENNA/DOCUSATE SODIUM TABLET 2 TAB PO (17:03)
[2024-06-20] MEDS: INSULIN ASPART (*BKC) 100 UNITS/ML SUB-Q ×2 (17:03→20:17)
[2024-06-20] MEDS: INSULIN ASPART (*BKC) 100 UNITS/ML 8 UNITS SUB-Q (17:04)
[2024-06-20 17:43] LABS: Glucose Point of Care 279 mg/dl (65-105)
[2024-06-20 17:43] LABS: Glucose Point of Care 299 mg/dl (65-105)
[2024-06-20] MEDS: ASPIRIN 81 MG ENTERIC TABLET PO (20:05)
[2024-06-20] MEDS: FAMOTIDINE 20 MG TABLET PO (20:05)
[2024-06-20] MEDS: INSULIN GLARGINE (*BKC) 100 UNITS/ML 80 UNITS SUB-Q (20:16)
[2024-06-20 20:35] LABS: Glucose Point of Care 347 mg/dl (65-105)
--- NOTE | ~2024-06-21 | XR_ITS ---
EXAMINATION: XR hip RT min 2V DATE: 06/20/2024 10:46 INDICATION: Right total hip arthroplasty. Postop. TECHNIQUE: 2 views of right hip were obtained. COMPARISON: Right hip radiographs 05/27/2024 FINDINGS: There is a total right hip arthroplasty in near-anatomic alignment. No fracture. There is g as in the soft tissues, consistent with recent surgery. IMPRESSION: 1. Total right hip arthroplasty in near-anatomic alignment. Reviewed, dictated and finalized at location B.
[2024-06-21 01:25] VITALS: BP 151/60; PULSE 97; RESP 19; TEMP 37.6; O2SAT 94
[2024-06-21 05:25] VITALS: BP 148/63; PULSE 93; RESP 12; TEMP 37.1; O2SAT 93
[2024-06-21 06:04] LABS: Basophils Percent Auto 0.3 % (0.2-1.2); Hemoglobin 10.2 g/dL (14.0-18.0); Immature Granulocyte Absolute 0.04 K/mm3 (0.00-0.031); Immature Granulocyte Percent A 0.4 % (0-0.5); Lymphocytes Absolute Auto 1.37 K/mm3 (0.9-3.2); Lymphocytes Percent Auto 14.7 % (18.3-44.2); Mean Corpuscular HGB Conc 32.9 g/dl (32-36); Mean Corpuscular Hemoglobin 29.1 pg (26-34); Mean Corpuscular Volume 88.6 fl (80-100); Mean Platelet Volume 11.4 fl (7.4-10.4); Monocytes Absolute Auto 0.9 K/mm3 (0.1-0.6); Monocytes Percent Auto 9.8 % (2.6-8.5); Neutrophils Absolute Auto 6.9 K/mm3 (1.3-6.7); Neutrophils Percent Auto 74.8 % (45.5-73.1); Platelet Count Result 146 k/mm3 (150-375); Red Cell Distribution Width 13.6 % (11.5-14.5); White Blood Count 9.3 K/mm3 (4.5-10.0)
[2024-06-21 06:17] LABS: Anion Gap 11 mmol/L (4-12); Blood Urea Nitrogen 36 mg/dL (9-20); Calcium 8.1 mg/dL (8.4-10.2); Carbon Dioxide 23 mmol/L (22-30); Chloride 99 mmol/L (98-107); Estimated CRCL calculation 56 ml/min; Estimated Glomerular Filt Rate 46; Glucose 262 mg/dL (65-110); Potassium 4.4 mmol/L (3.4-5.0); Sodium 133 mmol/L (137-145)
[2024-06-21] MEDS: ACETAMINOPHEN 325 MG TABLET 650 MG PO ×4 (06:39→23:53)
[2024-06-21] MEDS: ceFAZolin 2 GM/D5W 50 ML 2 GM/50 ML BAG IVPB (06:39)
[2024-06-21 08:07] VITALS: BP 129/62; PULSE 90; RESP 16; TEMP 37.1; O2SAT 95
[2024-06-21 08:25] LABS: Glucose Point of Care 272 mg/dl (65-105)
[2024-06-21] MEDS: ATORVASTATIN 40 MG TABLET PO (08:52)
[2024-06-21] MEDS: SENNA/DOCUSATE SODIUM TABLET 2 TAB PO ×2 (08:52→18:08)
[2024-06-21] MEDS: FAMOTIDINE 20 MG TABLET PO ×2 (08:53→21:10)
[2024-06-21] MEDS: ASPIRIN 81 MG ENTERIC TABLET PO ×2 (08:53→21:09)
[2024-06-21] MEDS: INSULIN ASPART (*BKC) 100 UNITS/ML SUB-Q ×3 (08:53→21:11)
[2024-06-21] MEDS: INSULIN ASPART (*BKC) 100 UNITS/ML 12 UNITS SUB-Q ×2 (08:53→12:17)
[2024-06-21] MEDS: amLODIPine BESYLATE 10 MG TABLET PO (08:53)
[2024-06-21] MEDS: polyethylene glycoL 3350 17 GM POWD.PACK PO (08:54)
[2024-06-21] MEDS: oxyCODONE/ACETAMINOPHEN (*CRX) 10-325 MG TABLET 1 TAB PO ×2 (08:55→18:07)
[2024-06-21 12:15] VITALS: BP 125/79; PULSE 83; RESP 17; TEMP 36.8; O2SAT 97
[2024-06-21] MEDS: oxyCODONE/ACETAMINOPHEN (*CRX) 5-325 MG TABLET 1 TABLET PO (12:16)
[2024-06-21] MEDS: SODIUM CHLORIDE 0.9% IV 1,000 ML 60 ML IV CONT (12:18)
[2024-06-21 12:21] LABS: Glucose Point of Care 273 mg/dl (65-105)
--- NOTE | 2024-06-21 12:51 | PM.PNORT ---
Progress Note: A&P Assessment and Plan (1) Status post total hip replacement, right: Code(s): Z96.641 - Presence of right artificial hip joint Status: Acute Assessment and Plan: Postop day 1: Right total Hip arthroplasty. Patient tolerated procedure well. Pain manageable with pain medication. No numbness or tingling. Patients BUN did increase to 34 today. Creatinine 1.54. GFR 46. He does have a history of kidney disease. Blood sugar not well controlled. Last blood glucose was in the 270s. I discussed with the hospitalist today. He recommends the patient stay another night to monitor his lab work and adjust his medications. I agree. Patient will be okay to discharge home once medically cleared. We had a lengthy discussion regarding postoperative wound care, limitations, expectations, and exercises. Patient shows good understanding. He has had initial physical therapy and is tolerating it well. DVT prophylaxis: 81 mg baby aspirin b.i.d. for 14 days. Pain medication: Percocet. Patient has followup appointment with Dr. King in 3 weeks. Subjective Subjective Date/Time Seen: 06/21/24 12:51 Interval history: Patient doing well this morning Mild pain with ambulating. Working with formal physical therapy at the time of my visit. Ambulating well with a walker. No complaints. Review of Systems Review of Systems: All systems reviewed & are unremarkable except as noted in HPI and below Exam Narrative: 69-year-old overweight male. Resting comfortably in chair. Alert and oriented x3. No acute distress. Wearing compression socks bilaterally. Dressing intact with no drainage. Mild swelling. No ecchymosis. No erythema. No hematoma. No warmth. Range of motion limited due to pain. Calf nontender. Neurologic status intact. No varicosities. Distal pulses palpable. Light touch sensation intact. Good capillary refill. Objective Data Vital Signs Vital Signs: Vital Signs - 24 hr 06/20/24 13:45 06/20/24 16:53 06/20/24 20:00 Temperature 98.1 F 98.2 F Pulse Rate 95 92 Respiratory Rate 17 18 Blood Pressure 151/67 H 130/86 Pulse Oximetry 97 95 Oxygen Delivery Room Air 06/20/24 21:12 06/21/24 01:25 06/21/24 05:25 Temperature 98.5 F 99.7 F H 98.8 F Pulse Rate 98 97 93 Respiratory Rate 16 19 12 Blood Pressure 162/75 H 151/60 H 148/63 H Pulse Oximetry 97 94 93 Oxygen Delivery 06/21/24 08:07 06/21/24 08:55 06/21/24 12:15 Temperature 98.8 F 98.3 F Pulse Rate 90 83 Respiratory Rate 16 17 Blood Pressure 129/62 125/79 Pulse Oximetry 95 97 Oxygen Delivery Room Air Intake/Output Intake/Output: Intake & Output 06/18/24 06/19/24 06/20/24 06/21/24 23:59 23:59 23:59 23:59 Intake Total 690 690 Balance 690 690 Meds/Results Medications: Active Medications Generic Name Dose Route Start Last Admin Trade Name Freq PRN Reason Stop Dose Admin Acetaminophen 650 mg 06/20/24 12:00 06/21/24 12:16 Acetaminophen 325 Mg Tablet PO 650 mg Q6HR LYRIC Administration Amlodipine Besylate 10 mg 06/21/24 09:00 06/21/24 08:53 Amlodipine Besylate 10 Mg Tablet PO 10 mg DAILY LYRIC Administration Aspirin 81 mg 06/20/24 21:00 06/21/24 08:53 Aspirin 81 Mg Enteric Tablet PO 81 mg Q12HR LYRIC Administration Atorvastatin Calcium 40 mg 06/21/24 09:00 06/21/24 08:52 Atorvastatin 40 Mg Tablet PO 40 mg DAILY LYRCI Administration Cyclobenzaprine HCl 10 mg 06/20/24 11:40 Cyclobenzaprine Hcl 10 Mg Tablet PO Q8H PRN Muscle Spasm Dextrose 12.5 gm 06/20/24 11:40 Dextrose 50% 25 Gm/50 Ml Syringe IV PUSH PRN PRN Hypoglycemia Protocol Famotidine 20 mg 06/20/24 21:00 06/21/24 08:53 Famotidine 20 Mg Tablet PO 20 mg Q12HR LYRIC Administration Glucagon 1 mg 06/20/24 11:40 Glucagon For Inj 1 Mg Vial IM PRN PRN Hypoglycemia Protocol Glucose 15 gm 06/20/24 11:40 Glucose Oral Gel 15 Gm Of Glucse In 37.5 Gm Tube PO PRN PRN Hypoglycemia Protocol Hydralazine HCl 10 mg 06/21/24 08:33 Hydralazine Hcl 20 Mg/Ml Vial IV PUSH Q6H PRN Blood Pressure - High Hydrochlorothiazide 12.5 mg 06/21/24 09:00 Hydrochlorothiazide 12.5 Mg Capsule PO QAM LYRIC Hydromorphone HCl 1 mg 06/20/24 11:40 Hydromorphone Hcl Inj (*Crx) 1 Mg/Ml Syr IV PUSH Q2H PRN Breakthrough Pain Rated 7-10 or NPO Hydromorphone HCl 0.5 mg 06/20/24 11:40 Hydromorphone Hcl Inj (*Crx) 1 Mg/Ml Syr IV PUSH Q2H PRN Breakthrough Pain Rated 4-6 or NPO Ibuprofen 800 mg in 200 mls @ 400 mls/hr 06/20/24 11:40 Caldolor 800 Mg/200 Ml IVPB Q6H PRN Breakthrough Pain Rated 1-3 or NPO Dextrose 1,000 mls @ 100 mls/hr 06/20/24 11:40 Dextrose 5% 1,000 Ml IVPB PRN PRN Hypoglycemia Protocol Sodium Chloride 1,000 mls @ 60 mls/hr 06/21/24 11:50 06/21/24 12:18 Normal Saline Iv IV CONT 60 mls/hr .[id number] LYRIC Administration Insulin Aspart 2 - 4 units 06/20/24 21:00 06/20/24 20:17 Insulin Aspart (*Bkc) 100 Units/Ml SUB-Q 3 units HS LYRIC Administration Protocol Insulin Aspart 4 - 8 units 06/20/24 17:00 06/21/24 12:17 Insulin Aspart (*Bkc) 100 Units/Ml SUB-Q 5 units TIDWM LYRIC Administration Protocol Insulin Aspart 12 units 06/21/24 08:00 06/21/24 12:17 Insulin Aspart (*Bkc) 100 Units/Ml SUB-Q 12 units TIDWM LYRIC Administration Insulin Glargine 80 units 06/20/24 21:00 06/20/24 20:16 Insulin Glargine (*Bkc) 100 Units/Ml SUB-Q 80 units DAILY@2100 LYRIC Administration Latanoprost 1 drop 06/20/24 21:00 06/20/24 20:05 Latanoprost 0.005% Op Soln 2.5 Ml Btl EACH EYE Not Given HS LYRIC Naloxone HCl 0.1 mg 06/20/24 11:40 Naloxone Hcl 0.4 Mg/Ml Vial IV PUSH Q2M PRN Opiate Reversal Olmesartan 20 mg 06/21/24 08:33 Olmesartan Medoxomil 20 Mg Tablet PO QAM LYRIC Ondansetron HCl 4 mg 06/20/24 11:40 Ondansetron Inj 4 Mg/2 Ml Vial IV PUSH Q4H PRN Nausea And Vomiting Oxycodone/Acetaminophen 1 tablet 06/20/24 11:40 06/21/24 12:16 Oxycodone/Acetaminophen (*Crx) 5-325 Mg Tablet PO 1 tablet Q4H PRN Administration Pain Rated 4-6 Oxycodone/Acetaminophen 1 tab 06/20/24 11:40 06/21/24 08:55 Oxycodone/Acetaminophen (*Crx) 10-325 Mg Tablet PO 1 tab Q6H PRN Administration Pain Rated 7-10 Polyethylene Glycol 17 gm 06/21/24 09:00 06/21/24 08:54 Polyethylene Glycol 3350 17 Gm Powd.Pack PO 17 gm QAM LYRIC Administration Senna/Docusate Sodium 2 tab 06/20/24 17:00 06/21/24 08:52 Senna/Docusate Sodium Tablet PO 2 tab BID LYRIC Administration Tramadol HCl 50 mg 06/20/24 11:40 Tramadol Hcl (*Crx) 50 Mg Tablet PO Q4H PRN Pain Rated 1-3 Radiology Results: ITS Impressions Hip X-Ray 06/20/24 10:48 IMPRESSION: 1. Total right hip arthroplasty in near-anatomic alignment. Labs Labs: Laboratory Results - last 24 hr 06/20/24 06/20/24 06/20/24 10:30 10:31 16:56 WBC RBC Hgb Hct MCV MCH MCHC RDW Plt Count MPV Immature Gran % (Auto) Neut % (Auto) Lymph % (Auto) Dickinson % (Auto) Eos % (Auto) Baso % (Auto) Lymph # (Auto) Dickinson # (Auto) Eos # (Auto) Baso # (Auto) Abs Immat Gran (auto) Absolute Neuts (auto) Absolute Nucleated RBC Nucleated RBC % Sodium Potassium Chloride Carbon Dioxide Anion Gap BUN Creatinine Estim Creat Clear Calc Estimated GFR Glucose POC Capillary Glucose 299 H 279 H 404 H Calcium 06/20/24 06/21/24 06/21/24 20:15 05:30 08:14 WBC 9.3 RBC 3.50 L Hgb 10.2 L Hct 31.0 L MCV 88.6 MCH 29.1 MCHC 32.9 RDW 13.6 Plt Count 146 L MPV 11.4 H Immature Gran % (Auto) 0.4 Neut % (Auto) 74.8 H Lymph % (Auto) 14.7 L Dickinson % (Auto) 9.8 H Eos % (Auto) 0.0 Baso % (Auto) 0.3 Lymph # (Auto) 1.37 Dickinson # (Auto) 0.9 H Eos # (Auto) 0.0 Baso # (Auto) 0.0 Abs Immat Gran (auto) 0.04 H Absolute Neuts (auto) 6.9 H Absolute Nucleated RBC 0.000 Nucleated RBC % 0.0 Sodium 133 L Potassium 4.4 Chloride 99 Carbon Dioxide 23 Anion Gap 11 BUN 36 H D Creatinine 1.52 H Estim Creat Clear Calc 56 Estimated GFR 46 L Glucose 262 H POC Capillary Glucose 347 H 272 H Calcium 8.1 L 06/21/24 12:12 WBC RBC Hgb Hct MCV MCH MCHC RDW Plt Count MPV Immature Gran % (Auto) Neut % (Auto) Lymph % (Auto) Dickinson % (Auto) Eos % (Auto) Baso % (Auto) Lymph # (Auto) Dickinson # (Auto) Eos # (Auto) Baso # (Auto) Abs Immat Gran (auto) Absolute Neuts (auto) Absolute Nucleated RBC Nucleated RBC % Sodium Potassium Chloride Carbon Dioxide Anion Gap BUN Creatinine Estim Creat Clear Calc Estimated GFR Glucose POC Capillary Glucose 273 H Calcium
--- NOTE | 2024-06-21 16:26 | P.PNIM_ITS ---
Progress Note: A&P Assessment and Plan (1) Status post total hip replacement, right: Code(s): Z96.641 - Presence of right artificial hip joint Status: Acute (2) Degenerative joint disease of right hip: Qualifiers: Osteoarthritis type: primary Qualified Code(s): M16.11 - Unilateral primary osteoarthritis, right hip Code(s): M16.11 - Unilateral primary osteoarthritis, right hip Status: Acute Assessment and Plan: * patient is postop day 0 from right total hip arthroplasty * continue hip precautions * continue neurovascular checks * continue incentive spirometry while awake * PT and OT ordered * continue pain control * weight-bearing as tolerated * continue ice q.6 hours for inflammation (3) Diabetes: Code(s): E11.9 - Type 2 diabetes mellitus without complications Status: Acute Assessment and Plan: patient has history of insulin resistance and normally takes 40-50 units with meals at home based on his sliding scale * Blood sugars ranging 198-326 * Hgb A1C 7.1 on 05/29/2024 * Accu checks AC/HS * high-dose SSI ordered * Lantus 80 units at HS ordered Will increase bolus insulin from 12 units to 14 units * hypoglycemic protocol in place * Diabetic diet ordered (4) Chronic kidney disease: Code(s): N18.9 - Chronic kidney disease, unspecified Status: Acute Assessment and Plan: * creatinine rise from 1.37 to 1.52, EGFR went down to 46 from 52 * baseline creatinine 1.17, EGFR greater than 60 * continue to trend * Started on fluid resuscitation * Holding olmesartan and hydrochlorothiazide (5) Hypertension: Code(s): I10 - Essential (primary) hypertension Status: Acute Assessment and Plan: * blood pressure ranging 123/71 to 151/67 * continue hydrochlorothiazide and Benicar (6) Hyperlipidemia: Code(s): E78.5 - Hyperlipidemia, unspecified Status: Acute Assessment and Plan: * continue aspirin and atorvastatin (7) Hyponatremia: Code(s): E87.1 - Hypo-osmolality and hyponatremia Status: Acute Assessment and Plan: Possibly due to hydrochlorothiazide Will hold Continue to monitor Subjective Date/time seen: 06/21/24 16:26 Interval history: Holding olmesartan and hydrochlorothiazide due to JESÚS and low-sodium. Patient is started on gentle fluid resuscitation. Will monitor BUN and creatinine and possible discharge tomorrow. Review of Systems Review of Systems: All systems reviewed & are unremarkable except as noted in HPI and below Exam Narrative: General: In no acute distress, well nourished Head: atraumatic, no encephalopathy Eyes: PERRLA, sclera clear ENT: moist mucous membranes, nasal passages clear Neck: supple, no JVD, no adenopathy, trachea midline Cardiac: Normal S1 and S2. RRR, No murmur, gallops or friction rubs, peripheral pulses intact. Respiratory: Lungs clear to auscultation, no adventitious lung sounds, currently on room air Gastrointestinal: soft, non-distended, non-tender, normoactive bowel sounds. : voiding without difficulty. Extremities: moves all extremities well, no edema Skin: incision with OR dressing Right hip Neuro: Alert and oriented x4, cranial nerves intact, no neuro deficits. Psych: normal mood, normal affect, interactive Objective Data Vital Signs Vital Signs: Vital Signs - 24 hr 06/20/24 16:53 06/20/24 20:00 06/20/24 21:12 Temperature 98.2 F 98.5 F Pulse Rate 92 98 Respiratory Rate 18 16 Blood Pressure 130/86 162/75 H Pulse Oximetry 95 97 Oxygen Delivery Room Air 06/21/24 01:25 06/21/24 05:25 06/21/24 08:07 Temperature 99.7 F H 98.8 F 98.8 F Pulse Rate 97 93 90 Respiratory Rate 19 12 16 Blood Pressure 151/60 H 148/63 H 129/62 Pulse Oximetry 94 93 95 Oxygen Delivery 06/21/24 08:55 06/21/24 12:15 Temperature 98.3 F Pulse Rate 83 Respiratory Rate 17 Blood Pressure 125/79 Pulse Oximetry 97 Oxygen Delivery Room Air Intake/Output Intake/Output: Intake & Output 06/18/24 06/19/24 06/20/24 06/21/24 23:59 23:59 23:59 23:59 Intake Total 690 690 Balance 690 690 Meds/Results Medications: Active Medications Generic Name Dose Route Start Last Admin Trade Name Freq PRN Reason Stop Dose Admin Acetaminophen 650 mg 06/20/24 12:00 06/21/24 12:16 Acetaminophen 325 Mg Tablet PO 650 mg Q6HR LYRIC Administration Amlodipine Besylate 10 mg 06/21/24 09:00 06/21/24 08:53 Amlodipine Besylate 10 Mg Tablet PO 10 mg DAILY LYRIC Administration Aspirin 81 mg 06/20/24 21:00 06/21/24 08:53 Aspirin 81 Mg Enteric Tablet PO 81 mg Q12HR LYRIC Administration Atorvastatin Calcium 40 mg 06/21/24 09:00 06/21/24 08:52 Atorvastatin 40 Mg Tablet PO 40 mg DAILY LYRIC Administration Cyclobenzaprine HCl 10 mg 06/20/24 11:40 Cyclobenzaprine Hcl 10 Mg Tablet PO Q8H PRN Muscle Spasm Dextrose 12.5 gm 06/20/24 11:40 Dextrose 50% 25 Gm/50 Ml Syringe IV PUSH PRN PRN Hypoglycemia Protocol Famotidine 20 mg 06/20/24 21:00 06/21/24 08:53 Famotidine 20 Mg Tablet PO 20 mg Q12HR LYRIC Administration Glucagon 1 mg 06/20/24 11:40 Glucagon For Inj 1 Mg Vial IM PRN PRN Hypoglycemia Protocol Glucose 15 gm 06/20/24 11:40 Glucose Oral Gel 15 Gm Of Glucse In 37.5 Gm Tube PO PRN PRN Hypoglycemia Protocol Hydralazine HCl 10 mg 06/21/24 08:33 Hydralazine Hcl 20 Mg/Ml Vial IV PUSH Q6H PRN Blood Pressure - High Hydrochlorothiazide 12.5 mg 06/21/24 09:00 Hydrochlorothiazide 12.5 Mg Capsule PO QAM LYRIC Hydromorphone HCl 1 mg 06/20/24 11:40 Hydromorphone Hcl Inj (*Crx) 1 Mg/Ml Syr IV PUSH Q2H PRN Breakthrough Pain Rated 7-10 or NPO Hydromorphone HCl 0.5 mg 06/20/24 11:40 Hydromorphone Hcl Inj (*Crx) 1 Mg/Ml Syr IV PUSH Q2H PRN Breakthrough Pain Rated 4-6 or NPO Ibuprofen 800 mg in 200 mls @ 400 mls/hr 06/20/24 11:40 Caldolor 800 Mg/200 Ml IVPB Q6H PRN Breakthrough Pain Rated 1-3 or NPO Dextrose 1,000 mls @ 100 mls/hr 06/20/24 11:40 Dextrose 5% 1,000 Ml IVPB PRN PRN Hypoglycemia Protocol Sodium Chloride 1,000 mls @ 60 mls/hr 06/21/24 11:50 06/21/24 12:18 Normal Saline Iv IV CONT 60 mls/hr .[id number] LYRIC Administration Insulin Aspart 2 - 4 units 06/20/24 21:00 06/20/24 20:17 Insulin Aspart (*Bkc) 100 Units/Ml SUB-Q 3 units HS LYRIC Administration Protocol Insulin Aspart 4 - 8 units 06/20/24 17:00 06/21/24 12:17 Insulin Aspart (*Bkc) 100 Units/Ml SUB-Q 5 units TIDWM LYRIC Administration Protocol Insulin Aspart 12 units 06/21/24 08:00 06/21/24 12:17 Insulin Aspart (*Bkc) 100 Units/Ml SUB-Q 12 units TIDWM LYRIC Administration Insulin Glargine 80 units 06/20/24 21:00 06/20/24 20:16 Insulin Glargine (*Bkc) 100 Units/Ml SUB-Q 80 units DAILY@2100 LYRIC Administration Latanoprost 1 drop 06/20/24 21:00 06/20/24 20:05 Latanoprost 0.005% Op Soln 2.5 Ml Btl EACH EYE Not Given HS [facility] Naloxone HCl 0.1 mg 06/20/24 11:40 Naloxone Hcl 0.4 Mg/Ml Vial IV PUSH Q2M PRN Opiate Reversal Olmesartan 20 mg 06/21/24 08:33 Olmesartan Medoxomil 20 Mg Tablet PO QAM LYRIC Ondansetron HCl 4 mg 06/20/24 11:40 Ondansetron Inj 4 Mg/2 Ml Vial IV PUSH Q4H PRN Nausea And Vomiting Oxycodone/Acetaminophen 1 tablet 06/20/24 11:40 06/21/24 12:16 Oxycodone/Acetaminophen (*Crx) 5-325 Mg Tablet PO 1 tablet Q4H PRN Administration Pain Rated 4-6 Oxycodone/Acetaminophen 1 tab 06/20/24 11:40 06/21/24 08:55 Oxycodone/Acetaminophen (*Crx) 10-325 Mg Tablet PO 1 tab Q6H PRN Administration Pain Rated 7-10 Polyethylene Glycol 17 gm 06/21/24 09:00 06/21/24 08:54 Polyethylene Glycol 3350 17 Gm Powd.Pack PO 17 gm QAM LYRIC Administration Senna/Docusate Sodium 2 tab 06/20/24 17:00 06/21/24 08:52 Senna/Docusate Sodium Tablet PO 2 tab BID LYRIC Administration Tramadol HCl 50 mg 06/20/24 11:40 Tramadol Hcl (*Crx) 50 Mg Tablet PO Q4H PRN Pain Rated 1-3 Radiology Results: ITS Impressions Hip X-Ray 06/20/24 10:48 IMPRESSION: 1. Total right hip arthroplasty in near-anatomic alignment. Labs Labs: Laboratory Results - last 24 hr 06/20/24 06/20/24 06/20/24 10:30 10:31 16:56 WBC RBC Hgb Hct MCV MCH MCHC RDW Plt Count MPV Immature Gran % (Auto) Neut % (Auto) Lymph % (Auto) Harper % (Auto) Eos % (Auto) Baso % (Auto) Lymph # (Auto) Harper # (Auto) Eos # (Auto) Baso # (Auto) Abs Immat Gran (auto) Absolute Neuts (auto) Absolute Nucleated RBC Nucleated RBC % Sodium Potassium Chloride Carbon Dioxide Anion Gap BUN Creatinine Estim Creat Clear Calc Estimated GFR Glucose POC Capillary Glucose 299 H 279 H 404 H Calcium 06/20/24 06/21/24 06/21/24 20:15 05:30 08:14 WBC 9.3 RBC 3.50 L Hgb 10.2 L Hct 31.0 L MCV 88.6 MCH 29.1 MCHC 32.9 RDW 13.6 Plt Count 146 L MPV 11.4 H Immature Gran % (Auto) 0.4 Neut % (Auto) 74.8 H Lymph % (Auto) 14.7 L Harper % (Auto) 9.8 H Eos % (Auto) 0.0 Baso % (Auto) 0.3 Lymph # (Auto) 1.37 Harper # (Auto) 0.9 H Eos # (Auto) 0.0 Baso # (Auto) 0.0 Abs Immat Gran (auto) 0.04 H Absolute Neuts (auto) 6.9 H Absolute Nucleated RBC 0.000 Nucleated RBC % 0.0 Sodium 133 L Potassium 4.4 Chloride 99 Carbon Dioxide 23 Anion Gap 11 BUN 36 H D Creatinine 1.52 H Estim Creat Clear Calc 56 Estimated GFR 46 L Glucose 262 H POC Capillary Glucose 347 H 272 H Calcium 8.1 L 06/21/24 12:12 WBC RBC Hgb Hct MCV MCH MCHC RDW Plt Count MPV Immature Gran % (Auto) Neut % (Auto) Lymph % (Auto) Harper % (Auto) Eos % (Auto) Baso % (Auto) Lymph # (Auto) Harper # (Auto) Eos # (Auto) Baso # (Auto) Abs Immat Gran (auto) Absolute Neuts (auto) Absolute Nucleated RBC Nucleated RBC % Sodium Potassium Chloride Carbon Dioxide Anion Gap BUN Creatinine Estim Creat Clear Calc Estimated GFR Glucose POC Capillary Glucose 273 H Calcium Quality VTE Prophylaxis VTE prophylaxis: mechanical ordered Hospitalist MIPS Advance Care Plan I have confirmed that the patient's Advanced Care Plan is present, code status is documented, or surrogate decision maker is listed in patient medical record.: Yes Medication Reconciliation I have utilized all available resources to obtain, update and review the patients current medications (includes all prescriptions, OTC, herbals, cannabis, and nutritional supplements).: Yes
[2024-06-21 17:22] LABS: Glucose Point of Care 193 mg/dl (65-105)
[2024-06-21] MEDS: INSULIN ASPART (*BKC) 100 UNITS/ML 14 UNITS SUB-Q (18:08)
[2024-06-21 21:00] LABS: Glucose Point of Care 260 mg/dl (65-105)
[2024-06-21] MEDS: INSULIN GLARGINE (*BKC) 100 UNITS/ML 80 UNITS SUB-Q (21:12)
[2024-06-21 22:00] VITALS: BP 148/98; PULSE 98; RESP 18; TEMP 37; O2SAT 93
[2024-06-22 06:00] VITALS: BP 145/91; PULSE 91; RESP 18; TEMP 37.1; O2SAT 95
[2024-06-22 06:24] LABS: Hematocrit 30.6 % (42.0-52.0); Mean Corpuscular HGB Conc 32.7 g/dl (32-36); Mean Corpuscular Hemoglobin 29.2 pg (26-34); Mean Corpuscular Volume 89.2 fl (80-100); Mean Platelet Volume 11.4 fl (7.4-10.4); Platelet Count Result 141 k/mm3 (150-375); Red Blood Count 3.43 M/mm3 (4.6-6.20); Red Cell Distribution Width 13.8 % (11.5-14.5); White Blood Count 8.5 K/mm3 (4.5-10.0)
[2024-06-22 06:35] LABS: Alanine Aminotransferase 19 U/L (6-50); Albumin Level 3.6 g/dL (3.5-5.1); Alkaline Phosphatase 58 U/L (38-126); Anion Gap 9 mmol/L (4-12); Aspartate Amino Transferase 37 U/L (17-59); Bilirubin,Total 1.1 mg/dL (0.2-1.3); Blood Urea Nitrogen 35 mg/dL (9-20); Calcium 8.1 mg/dL (8.4-10.2); Carbon Dioxide 23 mmol/L (22-30); Chloride 100 mmol/L (98-107); Estimated CRCL calculation 62 ml/min; Estimated Glomerular Filt Rate 51; Glucose 230 mg/dL (65-110); Potassium 4.3 mmol/L (3.4-5.0); Sodium 132 mmol/L (137-145)
[2024-06-22] MEDS: ACETAMINOPHEN 325 MG TABLET 650 MG PO ×2 (06:54→11:49)
[2024-06-22] MEDS: oxyCODONE/ACETAMINOPHEN (*CRX) 10-325 MG TABLET 1 TAB PO (06:57)
[2024-06-22 07:44] LABS: Glucose Point of Care 263 mg/dl (65-105)
[2024-06-22] MEDS: INSULIN ASPART (*BKC) 100 UNITS/ML SUB-Q ×2 (08:38→11:51)
[2024-06-22] MEDS: INSULIN ASPART (*BKC) 100 UNITS/ML 14 UNITS SUB-Q ×2 (08:38→11:50)
[2024-06-22] MEDS: ATORVASTATIN 40 MG TABLET PO (08:44)
[2024-06-22] MEDS: ASPIRIN 81 MG ENTERIC TABLET PO (08:44)
[2024-06-22] MEDS: SENNA/DOCUSATE SODIUM TABLET 2 TAB PO (08:45)
[2024-06-22] MEDS: amLODIPine BESYLATE 10 MG TABLET PO (08:45)
[2024-06-22] MEDS: FAMOTIDINE 20 MG TABLET PO (08:45)
[2024-06-22] MEDS: oxyCODONE/ACETAMINOPHEN (*CRX) 5-325 MG TABLET 1 TABLET PO (09:56)
--- NOTE | 2024-06-22 10:12 | P.PNIM_ITS ---
Progress Note: A&P Assessment and Plan (1) Hyponatremia: Code(s): E87.1 - Hypo-osmolality and hyponatremia Status: Acute (2) Right hip pain: Code(s): M25.551 - Pain in right hip Status: Acute (3) Diabetes: Code(s): E11.9 - Type 2 diabetes mellitus without complications Status: Acute Plan (1) Status post total hip replacement, right: Code(s): Z96.641 - Presence of right artificial hip joint Status: Acute (2) Degenerative joint disease of right hip: Qualifiers: Osteoarthritis type: primary Qualified Code(s): M16.11 - Unilateral primary osteoarthritis, right hip Code(s): M16.11 - Unilateral primary osteoarthritis, right hip Status: Acute Assessment and Plan: postop right total hip arthroplasty, performed 06/20 continue hip precautions continue incentive spirometry while awake PT and OT ordered Management per orthopedic surgeon Uncontrolled type 2 diabetes Code(s): E11.9 - Type 2 diabetes mellitus without complications Status: Acute Assessment and Plan: patient has history of insulin resistance and normally takes 40-50 units with meals at home based on his sliding scale Hgb A1C 7.1 on 05/29/2024 Lantus 80 units at HS now, changed to 50 units b.i.d. Continue aspart 14 units a.c., high-dose sliding scale a.c. and q.h.s. Further monitor and titrate medication per primary care doctor (4) Chronic kidney disease: Code(s): N18.9 - Chronic kidney disease, unspecified Status: Acute Assessment and Plan: creatinine rise from 1.37 to 1.52, EGFR went down to 46 from 52 baseline creatinine 1.17, EGFR greater than 60 continue to trend Started on fluid resuscitation Holding hydrochlorothiazide Creatinine back to the baseline Hypertension: Code(s): I10 - Essential (primary) hypertension Status: Acute Assessment and Plan: blood pressure ranging 123/71 to 151/67 Continue Benicar (6) Hyperlipidemia: Code(s): E78.5 - Hyperlipidemia, unspecified Status: Acute Assessment and Plan: * continue aspirin and atorvastatin * 7) Hyponatremia: Code(s): E87.1 - Hypo-osmolality and hyponatremia Status: Acute Assessment and Plan: Possibly due to hydrochlorothiazide Will hold hydrochlorothiazide Sodium level is stable Continue to monitor PCP Patient can be discharged today Subjective Date/time seen: 06/22/24 10:12 Interval history: I saw examined the patient today, patient feels comfortable, labs reviewed, kidney function improving creatinine back to baseline Exam Narrative: General: In no acute distress, well nourished Head: atraumatic, no encephalopathy Eyes: PERRLA, sclera clear ENT: moist mucous membranes, nasal passages clear Neck: supple, no JVD, no adenopathy, trachea midline Cardiac: Normal S1 and S2. RRR, No murmur, gallops or friction rubs, peripheral pulses intact. Respiratory: Lungs clear to auscultation, no adventitious lung sounds, currently on room air Gastrointestinal: soft, non-distended, non-tender, normoactive bowel sounds. : voiding without difficulty. Extremities: moves all extremities well, no edema Skin: incision with OR dressing Right hip Neuro: Alert and oriented x4, cranial nerves intact, no neuro deficits. Psych: normal mood, normal affect, interactive Objective Data Vital Signs Vital Signs: Vital Signs - 24 hr 06/21/24 12:15 06/21/24 22:00 06/22/24 06:00 Temperature 98.3 F 98.6 F 98.8 F Pulse Rate 83 98 91 Respiratory Rate 17 18 18 Blood Pressure 125/79 148/98 H 145/91 H Pulse Oximetry 97 93 95 Intake/Output Intake/Output: Intake & Output 06/19/24 06/20/24 06/21/24 06/22/24 23:59 23:59 23:59 23:59 Intake Total 690 1480 740 Balance 690 1480 740 Meds/Results Medications: Active Medications Generic Name Dose Route Start Last Admin Trade Name Freq PRN Reason Stop Dose Admin Acetaminophen 650 mg 06/20/24 12:00 06/22/24 06:54 Acetaminophen 325 Mg Tablet PO 650 mg Q6HR LYRIC Administration Amlodipine Besylate 10 mg 06/21/24 09:00 06/22/24 08:45 Amlodipine Besylate 10 Mg Tablet PO 10 mg DAILY LYRIC Administration Aspirin 81 mg 06/20/24 21:00 06/22/24 08:44 Aspirin 81 Mg Enteric Tablet PO 81 mg Q12HR LYRIC Administration Atorvastatin Calcium 40 mg 06/21/24 09:00 06/22/24 08:44 Atorvastatin 40 Mg Tablet PO 40 mg DAILY LYRIC Administration Cyclobenzaprine HCl 10 mg 06/20/24 11:40 Cyclobenzaprine Hcl 10 Mg Tablet PO Q8H PRN Muscle Spasm Dextrose 12.5 gm 06/20/24 11:40 Dextrose 50% 25 Gm/50 Ml Syringe IV PUSH PRN PRN Hypoglycemia Protocol Famotidine 20 mg 06/20/24 21:00 06/22/24 08:45 Famotidine 20 Mg Tablet PO 20 mg Q12HR LYRIC Administration Glucagon 1 mg 06/20/24 11:40 Glucagon For Inj 1 Mg Vial IM PRN PRN Hypoglycemia Protocol Glucose 15 gm 06/20/24 11:40 Glucose Oral Gel 15 Gm Of Glucse In 37.5 Gm Tube PO PRN PRN Hypoglycemia Protocol Hydralazine HCl 10 mg 06/21/24 08:33 Hydralazine Hcl 20 Mg/Ml Vial IV PUSH Q6H PRN Blood Pressure - High Hydrochlorothiazide 12.5 mg 06/21/24 09:00 Hydrochlorothiazide 12.5 Mg Capsule PO QAM LYRIC Hydromorphone HCl 1 mg 06/20/24 11:40 Hydromorphone Hcl Inj (*Crx) 1 Mg/Ml Syr IV PUSH Q2H PRN Breakthrough Pain Rated 7-10 or NPO Hydromorphone HCl 0.5 mg 06/20/24 11:40 Hydromorphone Hcl Inj (*Crx) 1 Mg/Ml Syr IV PUSH Q2H PRN Breakthrough Pain Rated 4-6 or NPO Ibuprofen 800 mg in 200 mls @ 400 mls/hr 06/20/24 11:40 Caldolor 800 Mg/200 Ml IVPB Q6H PRN Breakthrough Pain Rated 1-3 or NPO Dextrose 1,000 mls @ 100 mls/hr 06/20/24 11:40 Dextrose 5% 1,000 Ml IVPB PRN PRN Hypoglycemia Protocol Sodium Chloride 1,000 mls @ 60 mls/hr 06/21/24 11:50 06/21/24 12:18 Normal Saline Iv IV CONT 60 mls/hr .[id number] LYRIC Administration Insulin Aspart 2 - 4 units 06/20/24 21:00 06/21/24 21:11 Insulin Aspart (*Bkc) 100 Units/Ml SUB-Q 2 units HS LYRIC Administration Protocol Insulin Aspart 4 - 8 units 06/20/24 17:00 06/22/24 08:38 Insulin Aspart (*Bkc) 100 Units/Ml SUB-Q 5 units TIDWM LYRIC Administration Protocol Insulin Aspart 14 units 06/21/24 17:00 06/22/24 08:38 Insulin Aspart (*Bkc) 100 Units/Ml SUB-Q 14 units TIDWM LYRIC Administration Insulin Glargine 80 units 06/20/24 21:00 06/21/24 21:12 Insulin Glargine (*Bkc) 100 Units/Ml SUB-Q 80 units DAILY@2100 [facility] Administration Latanoprost 1 drop 06/20/24 21:00 06/21/24 21:00 Latanoprost 0.005% Op Soln 2.5 Ml Btl EACH EYE Not Given HS [facility] Naloxone HCl 0.1 mg 06/20/24 11:40 Naloxone Hcl 0.4 Mg/Ml Vial IV PUSH Q2M PRN Opiate Reversal Olmesartan 20 mg 06/21/24 08:33 Olmesartan Medoxomil 20 Mg Tablet PO QAM [facility] Ondansetron HCl 4 mg 06/20/24 11:40 Ondansetron Inj 4 Mg/2 Ml Vial IV PUSH Q4H PRN Nausea And Vomiting Oxycodone/Acetaminophen 1 tablet 06/20/24 11:40 06/22/24 09:56 Oxycodone/Acetaminophen (*Crx) 5-325 Mg Tablet PO 1 tablet Q4H PRN Administration Pain Rated 4-6 Oxycodone/Acetaminophen 1 tab 06/20/24 11:40 06/22/24 06:57 Oxycodone/Acetaminophen (*Crx) 10-325 Mg Tablet PO 1 tab Q6H PRN Administration Pain Rated 7-10 Polyethylene Glycol 17 gm 06/21/24 09:00 06/22/24 08:44 Polyethylene Glycol 3350 17 Gm Powd.Pack PO Not Given QAM [facility] Senna/Docusate Sodium 2 tab 06/20/24 17:00 06/22/24 08:45 Senna/Docusate Sodium Tablet PO 2 tab BID LYRIC Administration Tramadol HCl 50 mg 06/20/24 11:40 Tramadol Hcl (*Crx) 50 Mg Tablet PO Q4H PRN Pain Rated 1-3 Radiology Results: ITS Impressions Hip X-Ray 06/20/24 10:48 IMPRESSION: 1. Total right hip arthroplasty in near-anatomic alignment. Labs Labs: Laboratory Results - last 24 hr 06/21/24 06/21/24 06/21/24 12:12 17:16 20:18 WBC RBC Hgb Hct MCV MCH MCHC RDW Plt Count MPV Sodium Potassium Chloride Carbon Dioxide Anion Gap BUN Creatinine Estim Creat Clear Calc Estimated GFR Glucose POC Capillary Glucose 273 H 193 H 260 H Calcium Total Bilirubin AST ALT Alkaline Phosphatase Total Protein Albumin 06/22/24 06/22/24 05:42 07:30 WBC 8.5 RBC 3.43 L Hgb 10.0 L Hct 30.6 L MCV 89.2 MCH 29.2 MCHC 32.7 RDW 13.8 Plt Count 141 L MPV 11.4 H Sodium 132 L Potassium 4.3 Chloride 100 Carbon Dioxide 23 Anion Gap 9 BUN 35 H Creatinine 1.38 H Estim Creat Clear Calc 62 Estimated GFR 51 L Glucose 230 H POC Capillary Glucose 263 H Calcium 8.1 L Total Bilirubin 1.1 AST 37 ALT 19 Alkaline Phosphatase 58 Total Protein 7.0 Albumin 3.6
--- NOTE | 2024-06-22 11:08 | P.DS_ITS ---
DS: Admitting Diagnosis Discharge Date 06/22/24 Admitting Diagnosis hip arthritis DS: Discharge Diagnosis Discharge Diagnosis (1) Status post total hip replacement, right: Code(s): Z96.641 - Presence of right artificial hip joint Status: Acute Assessment and Plan: Postop day 1: Total hip arthroplasty. Patient tolerated procedure well. Patient kidney function did worsen after surgery. He required an extra day for monitoring. Stable today. His blood sugar is not well controlled in the hospital. Patient is typically controlled at home with a high dose insulin. The patient is confident that it will be better controlled when back on his normal dose. He will check his sugar regularly and follow up with his PCP in 1 week. I will call him Monday and see how he is doing. Patient feels well and has no complaints today. Pain manageable with pain medication. No numbness or tingling. We had a lengthy discussion regarding postoperative wound care, limitations, expectations, and exercises. Patient shows good understanding. Patient has had initial physical therapy and is tolerating it well. Patient has followup appointment with Dr. King in 3 weeks DS: Summary Hospital Course Reason for hospitalization: Total hip arthroplasty Hospital Course: Patient presented for total hip arthroplasty. Patient tolerated procedure well. Patient kidney function did worsen after surgery. He required an extra day for monitoring. Stable today. His blood sugar is not well controlled in the hospital. Patient is typically controlled at home with a high dose insulin. The patient is confident that it will be better controlled when back on his normal dose. He will check his sugar regularly and follow up with his PCP in 1 week. I will call him Monday and see how he is doing. Patient feels well and has no complaints today. Pain manageable with pain medication. No numbness or tingling. Status at Discharge Functional status at discharge: uses cane/walker Overall status at discharge: patient is back to baseline Time Spent with Patient Time attestation: Total time spent providing and/or coordinating discharge services: Exam Narrative: Overweight 69 y/o male. Resting comfortably in bed. Wearing compression socks bilaterally. Dressing dry and intact with no drainage. Moderate swelling. No ecchymosis. No erythema. No hematoma. Range of motion limited due to pain. Calf nontender. Thigh nontender. Neurologic status intact. No varicosities. Distal pulses palpable. DS: Data Data Completed and Pending Labs on day of discharge: Labs from last 24 hours 03/15/25 03/15/25 03/14/25 07:30 05:42 20:18 WBC 8.5 RBC 3.43 L Hgb 10.0 L Hct 30.6 L MCV 89.2 MCH 29.2 MCHC 32.7 RDW 13.8 Plt Count 141 L MPV 11.4 H Sodium 132 L Potassium 4.3 Chloride 100 Carbon Dioxide 23 Anion Gap 9 BUN 35 H Creatinine 1.38 H Estim Creat Clear Calc 62 Estimated GFR 51 L Glucose 230 H POC Capillary Glucose 263 H 260 H Calcium 8.1 L Total Bilirubin 1.1 AST 37 ALT 19 Alkaline Phosphatase 58 Total Protein 7.0 Albumin 3.6 06/21/24 06/21/24 17:16 12:12 WBC RBC Hgb Hct MCV MCH MCHC RDW Plt Count MPV Sodium Potassium Chloride Carbon Dioxide Anion Gap BUN Creatinine Estim Creat Clear Calc Estimated GFR Glucose POC Capillary Glucose 193 H 273 H Calcium Total Bilirubin AST ALT Alkaline Phosphatase Total Protein Albumin Discharge Plan Discharge Attending physician on discharge: Pramod King Consulting providers: Julia Aquino Discharging Clinician: Hannah Morales Anticipated Discharge Date/Time: 06/22/24 11:05 Patient Disposition: Home, Self-Care Activity: may shower and other - see discharge instructions Diet: diabetic Discharge Instructions: See green instruction sheets Patient Language: Frisian Stand Alone Forms: General Discharge Instructions Follow-up/Referrals: Hannah Morales, PA [Physician Millinery Designer] - Discharge Medications: New aspirin 81 mg tablet,delayed release (DR/EC) 81 mg PO BID 14 Days Qty: 28 0RF oxycodone-acetaminophen 5-325 mg tablet 1 - 2 tablet PO Q4-6H PRN (Reason: pain) 7 Days Qty: 30 0RF Continued (DME) insulin pen,reusable,BT,aspart [InPen (Novolog or Fiasp) Blue] .Route (DME) [facility] [place] Pen Cap-Basaglar Device See Rx Instructions .Route Rx Instructions: As directed atorvastatin 40 mg tablet 40 mg PO DAILY latanoprost 0.005 % drops 1 drp EACH EYE HS olmesartan-hydrochlorothiazide 20-12.5 mg tablet 1 tablet PO DAILY insulin aspart U-100 [Novolog FlexPen U-100 Insulin] 100 unit/mL (3 mL) insulin pen 1 sliding scale dose SUBCUT DAILY coenzyme Q10 [Co Q-10] 100 mg capsule 100 mg PO DAILY insulin glargine [Lantus Solostar U-100 Insulin] 100 unit/mL (3 mL) insulin pe n 80 unit SUBCUT QPM Date of admission: 06/21/24 16:14 Primary Care Provider: Samira,Savage Roldan Admitting Provider: Pramod King Attending physician on admission: Pramod King Condition: Stable
[2024-06-22 11:32] LABS: Glucose Point of Care 263 mg/dl (65-105)
== END 2024-06-22 12:50 | disposition home or self-care (01) | DRG 470 ==
LOC: ANHSURGERY 16:26 → ANH3MEDSUR 06-22 11:06
PROVIDERS: General Practice; Admitting Provider Orthopaedic Surgery; PCP Family Medicine; Visit Provider Physician Assistant Surgical
PROC: 0SR904A Replacement of Right Hip Joint with Ceramic on Polyethylene Synthetic Substitute, Uncemented, Open Approach (ICD-10-PCS; CPT 27130; principal; 2024-06-20 07:30)
DX: M16.11 Unilateral primary osteoarthritis, right hip (principal); E87.1 Hypo-osmolality and hyponatremia; T50.2X5A Adverse effect of carbonic-anhydrase inhibitors, benzothiadiazides and other diuretics, initial encounter; E11.22 Type 2 diabetes mellitus with diabetic chronic kidney disease; I12.9 Hypertensive chronic kidney disease with stage 1 through stage 4 chronic kidney disease, or unspecified chronic kidney disease; N18.9 Chronic kidney disease, unspecified; E78.5 Hyperlipidemia, unspecified; Z85.46 Personal history of malignant neoplasm of prostate; I25.10 Atherosclerotic heart disease of native coronary artery without angina pectoris; Z87.891 Personal history of nicotine dependence
CPT/HCPCS: 36415; 73502; 80048; 80053; 82948; 85025; 85027; 86850; 86900; 86901; 97110; 97116; 97161; 97165; 97530; 97535; A9270; C1776; J0171; J0690; J1100; J1815; J1885; J2003; J2250; J2270; J2405; J2704; J2795; J3010; J7030; J7120